=== PATIENT | female | born 1945 | race Caucasian/White ===

== ENCOUNTER 2019-11-25 06:00 | Outpatient (RCR) | payer MEDICARE, SELFPAY | END 2019-11-30 00:01 | LOC: ONCMED 06:00 | PROVIDERS: Family Provider Family Medicine; Visit Provider Internal Medicine Hematology & Oncology | DX: C50.211 Malignant neoplasm of upper-inner quadrant of right female breast (principal); C79.51 Secondary malignant neoplasm of bone; Z17.0 Estrogen receptor positive status [ER+]; Z79.811 Long term (current) use of aromatase inhibitors | CPT/HCPCS: 96372; 96402; 96523; J0897; J1642; J9395 ==

== ENCOUNTER → 2019-12-21 13:16 | Outpatient (BNVA) | payer MEDICARE, SELFPAY | PROVIDERS: Family Provider Family Medicine; PCP Family Medicine; Visit Provider Nurse Practitioner | DX: M47.816 Spondylosis without myelopathy or radiculopathy, lumbar region (principal); B02.29 Other postherpetic nervous system involvement; Z79.891 Long term (current) use of opiate analgesic | CPT/HCPCS: 99213 ==

== ENCOUNTER 2019-12-28 08:01 | Outpatient (CLI) | payer MEDICARE, SELFPAY ==
[2019-12-28] MEDS: denosumab 120 mg SDV SUBCUT (09:02)
[2019-12-28] MEDS: fulvestrant 250 mg/5 mL Syringe 500 MG IM (09:08)
--- NOTE | 2019-12-28 16:55 | ONC FU_ITS ---
Dr. Avitia follow up note Patient: Darcie Vaz Unit #: [id number]: 1945 Dicatated By: Jane Avitia M.D.Date of Visit:Dec 28, 2019 Onc Med Follow-up/Prog Note History of Present Illness: Mrs. Vaz is a 74-year-old female with a history of right breast cancer initially diagnosed in January 2017. She had mammography and ultrasound which showed a mass in the medial quadrant of right breast. A core biopsy was obtained which showed ER/CA positive HER-2/xavier negative. 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 Her postoperative period was complicated by left breast cellulitis which was treated with IV antibiotics . She underwent bilateral breast reconstruction and it was completed in January 2018. She did not receive adjuvant systemic therapy or radiation therapy at that time. She did not pursue hormonal treatment due to a history of osteoporosis. Mrs Vaz has history of osteoporosis/osteopenia for which she was treated with Fosamax for 12 years in . Then with Forteo for couple of years till 2009 as per patient. She did develop bilateral femur fracture due to osteoporosis and required internal fixation with titanium jenny in October 2008. She has history of back pain but recently got worse and she presented to her primary care physician for worsening back pain in the lower T and L-spine area. She underwent MRI imaging of the thoracic spine on 02/20/2018. It did show a nonacute appearing T7 and L1 burst fracture with associated mild central canal stenosis. The fracture did not appear to be pathologic. Additional T5, T6 and T11 mild compression fractures were noted. She was evaluated by Dr. Guillen and no surgical intervention was recommended. She did undergo PET/CT on 04/04/2018 which showed right axillary lymphadenopathy and bilateral supraclavicular lymphadenopathy with increased FDG uptake most likely recurrent malignancy. There was also a hypermetabolic malignant adenopathy in the anterior, mediastinal and widespread FDG activity throughout the marrow containing spaces of the axial and appendicular skeleton. These were strongly suspicious for widespread osseous metastatic disease. She had worsening of the low back pain which she described as persistent, stabbing, sharp pain that was worse especially when she walks, sits or stands. She had some radiation of the pain to the bilateral rib cage. She denied any focal weakness tingling or numbness. She's had no increments of the bowel or bladder at that time as well. She was referred to [facility] and Dr. Yap did recommend palliative radiation to the T and L-spine for pain relief. She received a total of 3000 cGy to the T and L-spine over 17 days. Her and of treatment date was 04/30/2018. She then received 2000 cGy to the sternum over 6 days with an end date of 05/06/2018. Mrs Vaz was offered her treatment with Ibrance and femara However she was unable to afford the co-pay on the Ibrance so her treatment plan has been changed to weekly paclitaxel . She received her first treatment on 06/16/2018. Till 11/11/2018, when her f/u CT PET scan done on 10/31/2018 showed excellent response to the treatment with resolution and near resolution of extensive osseous metastatic disease and she was switched to Arimidex 1 mg by mouth daily Along with monthly Xgeva and vitamin D and calcium supplement She did have kyphoplasty of L2 and L3 on 10/09/[address] Estrada-up CT PET scan done on 02/09/2019 showed excellent response to the treatment, now no evidence of metabolic activity disease with resolution of previously findings seen on prior CT PET scan. B12 deficiency, managed by primary care physicianMRI scan of lumbar spine was done on 03/16/2019 and when compared with one from 09/03/2018 showed diffuse osseous metastatic disease with complete replacement of normal fatty bone marrow signal, next Metastatic disease involving the S1 vertebral body is a new with progressed disease in the sacrum extending to the sacrococcygeal junction. Associated with edema and enhancement has progressed in this area. Enhancing metastatic disease involving S2 extending distally to the sacrococcygeal junction is progressed from previous consistent with metastatic disease. Associated enhancement, diffuse edema and enhancement in the sacrum is progressed since prior exam Stable multilevel compression fracture worse at L1 with mild retropulsion of L1 level MRI scan of thoracic spine done on 03/16/2019 showed diffuse osseous metastatic disease throughout the cervical thoracic and lumbar spine appears slightly progressed since 09/03/2018 with a more replacement of normal bone marrow signal Thoracic kyphoplasty at T5-T7. Vertebral plana at T7 is unchanged Numerous multilevel compression fractures throughout the thoracic spine appears stable since 09/03/2018 Cord signal is normal On 03/26/2019 patient underwent T8 and T10 kyphoplasty. Patient had CT PET scan done in January 2019, which showed excellent response, we will request radiologist to review and compared with that study. Her genetic profiling was done on 03/22/2019 showed positive results, pathogenic variant identified in BRCA2 CT PET scan done on 07/01/2019 showed hypermetabolic right supraclavicular lymph node with SUV of 2.86 and development of diffuse hypermetabolic metastatic disease throughout the axial and appendicular skeleton. Arimidex was discontinued and was switched to fulvestrant on 07/06/2019,but it was started on 07/27/2019 , while continue with Xgeva, Came for follow-up, denies any specific complaints, no fever or chills, no nausea or vomiting, no diarrhea constipation, no new bony pains. Tolerating fulvestrant/Xgeva well Medications: Aspir-81 1 Tablet (of 325 mg) Tablet, enteric coated Oral daily, Calcium + D3 1 Tablet (of 600-200 mg - Units) Oral daily, Chlorothiazide 1 Tablet (of 250 mg) Oral daily, Docusate Sodium 1 Tablet (of 100 mg) Oral at bedtime, Hydrocodone-Acetaminophen 1 Tablet (of 10-325 mg) Oral 6x/d PRN, Levothyroxine Sodium 1 (112 mcg) Tablet Oral daily, Lisinopril 1 Tablet (of 10 mg) Oral daily, LORazepam Tablet Oral PRN, Metoprolol Succinate ER 1 Tablet (of 25 mg) Tablet SR 24 HR Oral b.i.d. Allergies: penicillin and sulfonamides. Review of Systems: Constitutional - Appetite is fair and weight is stable. No fever, chills, hot flashes, or night sweats. Energy level is fair, ENMT - No sinus congestion/drainage. No mouth sores. No sore throat or difficulty swallowing, Hematologic/Lymphatic - No abnormal bruising or bleeding, Respiratory - Frequent shortness of breath with exertion. No cough. No pleuritic pain or hemoptysis, Cardiovascular - No angina pain. No palpitations, Gastrointestinal - No nausea or vomiting. No heartburn or acid reflux. No diarrhea or constipation. No blood in the stool or black stools, Genitourinary (F) - No dysuria or hematuria. No urinary frequency. No urgency or incontinence, Musculoskeletal - Pt reports that she continues to have issues with arthritis, Neurologic - No headache or dizziness. No numbness/paresthesias or other focal neurologic symptoms, Psychiatric - No anxiety or depression. No insomnia. Vital Signs: Performed on Dec 28, 2019 08:11 Height - 63.00 in Weight - 121.0 lbs (HIGH) BSA - 1.56 sq.m BMI - 21.43 Temperature - 98.0 F (LOW) Pulse - 72 /min Respiration - 18 /min BP - 122/75 mm(hg) O2 Sat - 99 % Pain - 2 Performance Status: 1 - No physically strenuous activity, but ambulatory and able to carry out light or sedentary work (e.g. office work, light house work). (ECOG) Physical Examination: Respiratory - Lungs are clear to auscultation without rhonchi or wheezing, Cardiovascular - Regular rate and rhythm of heart, Extremities - no edema. Lab/Imaging: Test performed on Oct 21, 2019 08:45 Sodium 137 mmol/L Potassium 4.3 mmol/L Chloride 101 mmol/L CO2 26 mmol/L Anion Gap 14.3 BUN 27 mg/dL Creatinine 1.1 mg/dL Cr Clearance (Est) 36.3300 mL/min Glucose 119 mg/dl Calcium 9.5 mg/dL Protein, Total 6.3 g/dL Albumin 4.7 g/dL Globulin 1.6 gm/dL Bilirubin, Total 0.3 mg/dL ALT (SGPT) 13 U/L AST (SGOT) 20 U/L Alkaline Phosphatase 68 U/L WBC 5.0 10 3/uL RBC 2.94 10 6/uL HGB 9.3 g/dL HCT 29.6 % MCV 100.7 fl MCH 31.6 pg MCHC 31.4 g/dl RDW 13.2 % Platelet Count 168 10 3/cmm MPV 11.1 fl Neutrophils 3.8 10 3/uL Lymphocytes 0.7 10 3/uL Monocytes 0.4 10 3/uL Eosinophils 0.2 10 3/uL Basophils 0.0 10 3/uL Neutrophil % 74.5 % Lymphocyte % 13.9 % Monocyte % 7.6 % Eosinophil % 3.4 % Basophils % 0.4 % Test performed on Jul 27, 2019 08:50 Vitamin B12 501 pg/mL Test performed on Jul 06, 2019 11:20 CA 27.29 6.48 U/mL Test performed on Jul 06, 2019 08:45 CA 15-3 12.0 U/mL CEA 2.3 ng/mL Impression: 1. Right breast carcinoma status post bilateral mastectomy with sentinel lymph node dissection in January 2017 Status post bilateral mastectomy January 2017 followed by bilateral breast reconstruction ER/CA positive HER-2/xavier negative ,Genetic testing done on 03/22/2019 showed results positive, pathogenic variant identified in BRCA2 She was offered tamoxifen but patient did not take any form of systemic/hormonal therapy because of fear of worsening of osteoporosis. Chronic back pain with questionable etiology MRI scan of thoracic spine done on February 20 2 x 18 showed T7, and L1 severe compression fracture do not appear to be pathological T4-L2 abnormal dural uniform thickening and enhancement CT PET scan done on 04/04/2018 showed a dominant 1.5 cm left supraclavicular lymph node has SUV of 12.5, suspicious activity is noted in subcentimeter right and left supraclavicular lymph nodes. Multiple hypermetabolic the right axillary lymph nodes are evident in the 1-3 levels with a solitary subcentimeter left exited lymph node an SUV of 3.1 there is abnormal activity in soft tissue anterior to right breast implant measuring 4.4 cm with SUV of 9.1. Malignant mediastinal lymphadenopathy is present in the right anterior mediastinal territory. Mild bilateral hilar activity may be reactive and there is a diffuse activity throughout the marrow containing spaces of the axial and appendicular skeleton widespread metastatic disease versus reactive marrow. Status post radiation therapy to sternum and and back, finished 05/06/2018. was On Femara since March 2018. She was offered a modified dose Ibrance 75 mg by mouth daily day 1-21 days every 28 days, but was declined as she could not afford the high copayments . starting 06/16/18 femara was d/jordy and started on weekly Taxol 80 mg/m??? on day 1, 8 and 15 every 28 days along with monthly Zometa 3 mg intravenously. lter on switched to xgeva , Follow-up CT PET scan done on 10/31/2018 showed excellent response so chemotherapy with weekly Taxol were discontinued on 11/11/2018 and she was switched to Arimidex 1 mg by mouth daily along with monthly Xgeva 2. Hypothyroidism on thyroid supplement 3. History of osteoporosis/osteopenia in the past treated with Fosamax for about 12 years in 1980s and then with Forteo for 2 years till 2009. 4. Hyperlipidemia Mrs Татьяна began chemotherapy with paclitaxel 2 out of 3 weeks on 06/16/2018. She is not on Femara at this time.And Zometa was discontinued on 09/09/2018 she will start on Xgeva 120 mg every month MRI scan of spine done on 09/03/2018 showed numerous osteoporotic and pathological compression and burst compression fracture identified, burst fracture at L1 with a 6.7 mm retropulsion with a mild compression upon thecal sac and narrowing of left foramen. Similar to the prior study with no progression Severe compression fractures at T5 and T7 with a more moderate compression deformities at T6, T9, T10, T11 and T12. Compression fracture also at L2, L3 and L4. Mild progression of compression fracture of L4 of approximately 20% Extent of enhancement has improved in the right ilium and right sacrum since MRI scan done in May 2018 CT PET scan done on 10/31/2018 showed right periimplant activity seen on previous CT PET scan done on 04/04/2018 is resolved, no suspicious bilateral axillary or supraclavicular lymphadenopathy present. Mediastinal adenopathy is resolved. Extensive sclerotic changes throughout the axial and appendicular skeleton are consistent with resolution and near resolution of osseous metastatic disease. Mild FDG activity in multiple thoracic vertebrae, bilateral scapula and iliac suggest ongoing resolution metastasis. Now on daily Arimidex, and monthly Xgeva, tolerating well and on 02/17/2019 Xgeva changed to every 3 months as her follow-up PET scan done on 02/09/2019 showed excellent response to the treatment now with no evidence of metabolically active disease with resolution of previously findings seen on a prior CT PET scan.MRI scan of thoracic/lumbar/sacral done on 03/16/2019, when compared with one from 09/03/2018 showed diffuse osseous metastatic disease throughout the cervical thorax and lumbar spine appears slightly progressed since 09/03/2018 with more replacement of normal marrow signal Thoracic kyphosis at T5-T7. Vertebra plana at T7 is unchanged Numerous multilevel compression fractures throughout the thoracic spine appears stable since 09/03/2018. No acute compression fracture Cord signal is normal Metastatic disease involving S1 vertebral body is new with progressed disease in the sacrum extending to sacrococcygeal junction. Associated edema and enhancement has progressed in this area. Stable multilevel compression fractures worse at L1 This MRI scan was compared with one from 09/03/[address] PET scan done on 02/09/2019 which showed excellent response so we will request radiologist to compare with recent CT PET scan. B12 deficiency, being managed by PMD CT PET scan done on 07/01/2019 showed hypermetabolic right supraclavicular lymph node with SUV of 2.86 Extensive bone metastases including right humeral head metastatic lesion shows SUV of 5.89. Hypermetabolic metastasis within the presumed T6 vertebral body showed SUV of 4.7 Right posterior sectoral metastasis shows make sure SUV of 5.09 next right femoral metastases shows SUV of 12.3 and there are other hypermetabolic metastasis seen in the left femur, bony pelvis, multiple bilateral ribs and spine Plan: Discussed with patient regarding her disease status and concern, clinically patient is doing well no new signs symptom suggestive of disease progression. We'll proceed with her monthly dose of Xgeva and fulvestrant today and then return to clinic in one month with CBC CMP and for dose of Xgeva/fulvestrant Signed By: Jane Avitia M.D. <<Signature on File>>
== END 2019-12-28 08:02 | disposition home or self-care (01) ==
LOC: ONCMED 08:03
PROVIDERS: Family Provider Family Medicine; PCP Family Medicine; Visit Provider Internal Medicine Hematology & Oncology
DX: C79.51 Secondary malignant neoplasm of bone (principal); C50.211 Malignant neoplasm of upper-inner quadrant of right female breast; C79.52 Secondary malignant neoplasm of bone marrow; C77.8 Secondary and unspecified malignant neoplasm of lymph nodes of multiple regions; M81.0 Age-related osteoporosis without current pathological fracture; E53.8 Deficiency of other specified B group vitamins; Z45.2 Encounter for adjustment and management of vascular access device; G89.29 Other chronic pain; M54.9 Dorsalgia, unspecified; E03.9 Hypothyroidism, unspecified; E78.5 Hyperlipidemia, unspecified; Z17.0 Estrogen receptor positive status [ER+]; Z79.818 Long term (current) use of other agents affecting estrogen receptors and estrogen levels; Z79.82 Long term (current) use of aspirin; Z79.891 Long term (current) use of opiate analgesic; Z90.13 Acquired absence of bilateral breasts and nipples; Z98.1 Arthrodesis status; Z92.3 Personal history of irradiation; Z92.21 Personal history of antineoplastic chemotherapy
CPT/HCPCS: 96372; 96402; 96523; 99214; J0897; J9395

== ENCOUNTER 2020-01-28 05:39 | Outpatient (RCR) | payer MEDICARE, SELFPAY ==
[2020-01-26 09:16] LABS: Basophils % 0.9 %; Eosinophils # 0.2 10^3/uL (0.0-0.8); Eosinophils % 4.4 %; Hematocrit 29.8 % (37.0-47.0); Hemoglobin 9.4 g/dL (11.5-15.3); Lymphocytes # 0.9 10^3/uL (0.8-4.8); Lymphocytes % 19.8 %; Mean Corpuscular HGB Conc 31.5 g/dL (30.0-36.0); Mean Corpuscular Hemoglobin 31.4 pg (28.0-34.0); Mean Corpuscular Volume 99.7 fL (81-99); Mean Platelet Volume 11.6 fL (7.4-10.4); Monocytes # 0.4 10^3/uL (0.2-0.9); Monocytes % 9.3 %; Neutrophils # 2.9 10^3/uL (1.8-7.7); Neutrophils % 64.9 %; Nucleated Red Blood Cells % 0 %; Platelet Count 203 10^3/cmm (130-400); Red Blood Count 2.99 10^6/uL (4.1-5.3); White Blood Count 4.5 10^3/uL (4.0-10.0)
[2020-01-26 09:33] LABS: Alanine Aminotransferase 13 U/L (0-33); Albumin Level 3.7 g/dL (3.5-5.2); Alkaline Phosphatase 72 IU/L (35-105); Anion Gap 13.5 (5-19); Aspartate Amino Transferase 26 U/L (0-32); Blood Urea Nitrogen 25 mg/dL (8-23); Calcium 9.3 mg/dL (8.5-10.5); Carbon Dioxide 25 mmol/L (22-29); Chloride 101 mmol/L (98-107); Globulin 3.6 g/dL (1.3-4.6); Glucose 110 mg/dL (65-115); Potassium 4.5 mmol/L (3.5-5.1); Sodium 135 mmol/L (136-145); Total Bilirubin 0.3 mg/dL (0.15-1.2); Total Protein 7.3 g/dL (6.6-8.7)
--- NOTE | 2020-01-28 09:01 | ONC FU_ITS ---
Dr. Avitia follow up note Patient: Darcie Vaz Unit #: [id number]: 1945 Dicatated By: Jane Avitia M.D.Date of Visit:Jan 28, 2020 Onc Med Follow-up/Prog Note History of Present Illness: Mrs. Vaz is a 74-year-old female with a history of right breast cancer initially diagnosed in January 2017. She had mammography and ultrasound which showed a mass in the medial quadrant of right breast. A core biopsy was obtained which showed ER/WY positive HER-2/xavier negative. 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 Her postoperative period was complicated by left breast cellulitis which was treated with IV antibiotics . She underwent bilateral breast reconstruction and it was completed in January 2018. She did not receive adjuvant systemic therapy or radiation therapy at that time. She did not pursue hormonal treatment due to a history of osteoporosis. Mrs Vaz has history of osteoporosis/osteopenia for which she was treated with Fosamax for 12 years in . Then with Forteo for couple of years till 2009 as per patient. She did develop bilateral femur fracture due to osteoporosis and required internal fixation with titanium jenny in October 2008. She has history of back pain but recently got worse and she presented to her primary care physician for worsening back pain in the lower T and L-spine area. She underwent MRI imaging of the thoracic spine on 02/20/2018. It did show a nonacute appearing T7 and L1 burst fracture with associated mild central canal stenosis. The fracture did not appear to be pathologic. Additional T5, T6 and T11 mild compression fractures were noted. She was evaluated by Dr. Guillen and no surgical intervention was recommended. She did undergo PET/CT on 04/04/2018 which showed right axillary lymphadenopathy and bilateral supraclavicular lymphadenopathy with increased FDG uptake most likely recurrent malignancy. There was also a hypermetabolic malignant adenopathy in the anterior, mediastinal and widespread FDG activity throughout the marrow containing spaces of the axial and appendicular skeleton. These were strongly suspicious for widespread osseous metastatic disease. She had worsening of the low back pain which she described as persistent, stabbing, sharp pain that was worse especially when she walks, sits or stands. She had some radiation of the pain to the bilateral rib cage. She denied any focal weakness tingling or numbness. She's had no increments of the bowel or bladder at that time as well. She was referred to [facility] and Dr. Yap did recommend palliative radiation to the T and L-spine for pain relief. She received a total of 3000 cGy to the T and L-spine over 17 days. Her and of treatment date was 04/30/2018. She then received 2000 cGy to the sternum over 6 days with an end date of 05/06/2018. Mrs Vaz was offered her treatment with Ibrance and femara However she was unable to afford the co-pay on the Ibrance so her treatment plan has been changed to weekly paclitaxel . She received her first treatment on 06/16/2018. Till 11/11/2018, when her f/u CT PET scan done on 10/31/2018 showed excellent response to the treatment with resolution and near resolution of extensive osseous metastatic disease and she was switched to Arimidex 1 mg by mouth daily Along with monthly Xgeva and vitamin D and calcium supplement She did have kyphoplasty of L2 and L3 on 10/09/[address] Estrada-up CT PET scan done on 02/09/2019 showed excellent response to the treatment, now no evidence of metabolic activity disease with resolution of previously findings seen on prior CT PET scan. B12 deficiency, managed by primary care physicianMRI scan of lumbar spine was done on 03/16/2019 and when compared with one from 09/03/2018 showed diffuse osseous metastatic disease with complete replacement of normal fatty bone marrow signal, next Metastatic disease involving the S1 vertebral body is a new with progressed disease in the sacrum extending to the sacrococcygeal junction. Associated with edema and enhancement has progressed in this area. Enhancing metastatic disease involving S2 extending distally to the sacrococcygeal junction is progressed from previous consistent with metastatic disease. Associated enhancement, diffuse edema and enhancement in the sacrum is progressed since prior exam Stable multilevel compression fracture worse at L1 with mild retropulsion of L1 level MRI scan of thoracic spine done on 03/16/2019 showed diffuse osseous metastatic disease throughout the cervical thoracic and lumbar spine appears slightly progressed since 09/03/2018 with a more replacement of normal bone marrow signal Thoracic kyphoplasty at T5-T7. Vertebral plana at T7 is unchanged Numerous multilevel compression fractures throughout the thoracic spine appears stable since 09/03/2018 Cord signal is normal On 03/26/2019 patient underwent T8 and T10 kyphoplasty. Patient had CT PET scan done in January 2019, which showed excellent response, we will request radiologist to review and compared with that study. Her genetic profiling was done on 03/22/2019 showed positive results, pathogenic variant identified in BRCA2 CT PET scan done on 07/01/2019 showed hypermetabolic right supraclavicular lymph node with SUV of 2.86 and development of diffuse hypermetabolic metastatic disease throughout the axial and appendicular skeleton. Arimidex was discontinued and was switched to fulvestrant on 07/06/2019,but it was started on 07/27/2019 , while continue with Xgeva, came for follow-up, denies any specific complaints, no nausea vomiting, no diarrhea or constipation, occasionally hot flashes otherwise tolerating Faslodex/Xgeva well, no shortness of breath, no palpitation, Medications: Aspir-81 1 Tablet (of 325 mg) Tablet, enteric coated Oral daily, Calcium + D3 1 Tablet (of 600-200 mg - Units) Oral daily, Chlorothiazide 1 Tablet (of 250 mg) Oral daily, Docusate Sodium 1 Tablet (of 100 mg) Oral at bedtime, Hydrocodone-Acetaminophen 1 Tablet (of 10-325 mg) Oral 6x/d PRN, Levothyroxine Sodium 1 (112 mcg) Tablet Oral daily, Lisinopril 1 Tablet (of 10 mg) Oral daily, LORazepam Tablet Oral PRN, Metoprolol Succinate ER 1 Tablet (of 25 mg) Tablet SR 24 HR Oral b.i.d. Allergies: penicillin and sulfonamides. Review of Systems: Constitutional - Appetite is fair and weight is stable. No fever, chills, hot flashes, or night sweats. Energy level is poor today, ENMT - No sinus congestion/drainage. No mouth sores. No sore throat or difficulty swallowing, Hematologic/Lymphatic - No abnormal bruising or bleeding, Respiratory - Frequent shortness of breath with exertion. No cough. No pleuritic pain or hemoptysis, Cardiovascular - No angina pain. No palpitations, Gastrointestinal - No nausea or vomiting. No heartburn or acid reflux. No diarrhea or constipation. No blood in the stool or black stools, Genitourinary (F) - No dysuria or hematuria. No urinary frequency. No urgency or incontinence, Musculoskeletal - Pt reports that she continues to have issues with arthritis, Neurologic - No headache or dizziness. No numbness/paresthesias or other focal neurologic symptoms, Psychiatric - No anxiety or depression. No insomnia. Vital Signs: Performed on Jan 28, 2020 08:15 Height - 63.00 in Weight - 122.0 lbs (HIGH) BSA - 1.57 sq.m BMI - 21.61 Temperature - 97.9 F (LOW) Pulse - 74 /min Respiration - 18 /min BP - 110/68 mm(hg) O2 Sat - 97 % Pain - 2 Performance Status: 1 - No physically strenuous activity, but ambulatory and able to carry out light or sedentary work (e.g. office work, light house work). (ECOG) Physical Examination: Respiratory - Lungs are clear to auscultation without rhonchi or wheezing, Cardiovascular - Regular rate and rhythm of heart, Extremities - no edema. Lab/Imaging: Test performed on Jan 26, 2020 08:40 Sodium 135 mmol/L Potassium 4.5 mmol/L Chloride 101 mmol/L CO2 25 mmol/L Anion Gap 13.5 BUN 25 mg/dL Creatinine 1.1 mg/dL Cr Clearance (Est) 38.2900 mL/min Glucose 110 mg/dL Calcium 9.3 mg/dL Protein, Total 7.3 g/dL Albumin 3.7 g/dL Globulin 3.6 g/dL Bilirubin, Total 0.3 mg/dL ALT (SGPT) 13 U/L AST (SGOT) 26 U/L Alkaline Phosphatase 72 IU/L WBC 4.5 10 3/uL RBC 2.99 10 6/uL HGB 9.4 g/dL HCT 29.8 % MCV 99.7 fL MCH 31.4 pg MCHC 31.5 g/dL RDW 14.0 % Platelet Count 203 10 3/cmm MPV 11.6 fL Neutrophils 2.9 10 3/uL Lymphocytes 0.9 10 3/uL Monocytes 0.4 10 3/uL Eosinophils 0.2 10 3/uL Basophils 0.0 10 3/uL Neutrophil % 64.9 % Lymphocyte % 19.8 % Monocyte % 9.3 % Eosinophil % 4.4 % Basophils % 0.9 % Impression: 1. Right breast carcinoma status post bilateral mastectomy with sentinel lymph node dissection in January 2017 Status post bilateral mastectomy January 2017 followed by bilateral breast reconstruction ER/WY positive HER-2/xavier negative ,Genetic testing done on 03/22/2019 showed results positive, pathogenic variant identified in BRCA2 She was offered tamoxifen but patient did not take any form of systemic/hormonal therapy because of fear of worsening of osteoporosis. Chronic back pain with questionable etiology MRI scan of thoracic spine done on February 20 x 18 showed T7, and L1 severe compression fracture do not appear to be pathological T4-L2 abnormal dural uniform thickening and enhancement CT PET scan done on 04/04/2018 showed a dominant 1.5 cm left supraclavicular lymph node has SUV of 12.5, suspicious activity is noted in subcentimeter right and left supraclavicular lymph nodes. Multiple hypermetabolic the right axillary lymph nodes are evident in the 1-3 levels with a solitary subcentimeter left exited lymph node an SUV of 3.1 there is abnormal activity in soft tissue anterior to right breast implant measuring 4.4 cm with SUV of 9.1. Malignant mediastinal lymphadenopathy is present in the right anterior mediastinal territory. Mild bilateral hilar activity may be reactive and there is a diffuse activity throughout the marrow containing spaces of the axial and appendicular skeleton widespread metastatic disease versus reactive marrow. Status post radiation therapy to sternum and and back, finished 05/06/2018. was On Femara since March 2018. She was offered a modified dose Ibrance 75 mg by mouth daily day 1-21 days every 28 days, but was declined as she could not afford the high copayments . starting 06/16/18 femara was d/jordy and started on weekly Taxol 80 mg/m??? on day 1, 8 and 15 every 28 days along with monthly Zometa 3 mg intravenously. lter on switched to xgeva , Follow-up CT PET scan done on 10/31/2018 showed excellent response so chemotherapy with weekly Taxol were discontinued on 11/11/2018 and she was switched to Arimidex 1 mg by mouth daily along with monthly Xgeva 2. Hypothyroidism on thyroid supplement 3. History of osteoporosis/osteopenia in the past treated with Fosamax for about 12 years in 1980s and then with Forteo for 2 years till 2009. 4. Hyperlipidemia Mrs Vaz began chemotherapy with paclitaxel 2 out of 3 weeks on 06/16/2018. She is not on Femara at this time.And Zometa was discontinued on 09/09/2018 she will start on Xgeva 120 mg every month MRI scan of spine done on 09/03/2018 showed numerous osteoporotic and pathological compression and burst compression fracture identified, burst fracture at L1 with a 6.7 mm retropulsion with a mild compression upon thecal sac and narrowing of left foramen. Similar to the prior study with no progression Severe compression fractures at T5 and T7 with a more moderate compression deformities at T6, T9, T10, T11 and T12. Compression fracture also at L2, L3 and L4. Mild progression of compression fracture of L4 of approximately 20% Extent of enhancement has improved in the right ilium and right sacrum since MRI scan done in May 2018 CT PET scan done on 10/31/2018 showed right periimplant activity seen on previous CT PET scan done on 04/04/2018 is resolved, no suspicious bilateral axillary or supraclavicular lymphadenopathy present. Mediastinal adenopathy is resolved. Extensive sclerotic changes throughout the axial and appendicular skeleton are consistent with resolution and near resolution of osseous metastatic disease. Mild FDG activity in multiple thoracic vertebrae, bilateral scapula and iliac suggest ongoing resolution metastasis. Now on daily Arimidex, and monthly Xgeva, tolerating well and on 02/17/2019 Xgeva changed to every 3 months as her follow-up PET scan done on 02/09/2019 showed excellent response to the treatment now with no evidence of metabolically active disease with resolution of previously findings seen on a prior CT PET scan.MRI scan of thoracic/lumbar/sacral done on 03/16/2019, when compared with one from 09/03/2018 showed diffuse osseous metastatic disease throughout the cervical thorax and lumbar spine appears slightly progressed since 09/03/2018 with more replacement of normal marrow signal Thoracic kyphosis at T5-T7. Vertebra plana at T7 is unchanged Numerous multilevel compression fractures throughout the thoracic spine appears stable since 09/03/2018. No acute compression fracture Cord signal is normal Metastatic disease involving S1 vertebral body is new with progressed disease in the sacrum extending to sacrococcygeal junction. Associated edema and enhancement has progressed in this area. Stable multilevel compression fractures worse at L1 This MRI scan was compared with one from 09/03/[address] PET scan done on 02/09/2019 which showed excellent response so we will request radiologist to compare with recent CT PET scan. B12 deficiency, being managed by PMD CT PET scan done on 07/01/2019 showed hypermetabolic right supraclavicular lymph node with SUV of 2.86 Extensive bone metastases including right humeral head metastatic lesion shows SUV of 5.89. Hypermetabolic metastasis within the presumed T6 vertebral body showed SUV of 4.7 Right posterior sectoral metastasis shows make sure SUV of 5.09 next right femoral metastases shows SUV of 12.3 and there are other hypermetabolic metastasis seen in the left femur, bony pelvis, multiple bilateral ribs and spine Plan: Discussed with patient regarding her labs white blood count 4.5 hemoglobin 9.4 crit 29.8 platelets 203,000 CMP within normal limits Clinically, patient is doing well, tolerating monthly Faslodex/Xgeva well but with expected side effects. We'll proceed with next dose Faslodex and Xgeva today and then will schedule her for follow-up CT PET scan to assess disease status and she will return to clinic in one month with CBC CMP [id number] but well compensated anemia, patient, said it is a lifelong problem e.g. anemia, required blood transfusion one time in her entire life. We'll continue to monitor and she will return to clinic in one month with CBC CMP and PET scan. Signed By: Jane Avitia M.D. <<Signature on File>>
== END 2020-01-29 23:59 | disposition home or self-care (01) ==
LOC: ONCMED 05:39
PROVIDERS: Family Provider Family Medicine; PCP Family Medicine; Visit Provider Internal Medicine Hematology & Oncology
DX: C50.211 Malignant neoplasm of upper-inner quadrant of right female breast (principal); C79.51 Secondary malignant neoplasm of bone; Z17.0 Estrogen receptor positive status [ER+]; C77.1 Secondary and unspecified malignant neoplasm of intrathoracic lymph nodes; M81.0 Age-related osteoporosis without current pathological fracture; E53.8 Deficiency of other specified B group vitamins; E03.9 Hypothyroidism, unspecified; E78.5 Hyperlipidemia, unspecified; D64.9 Anemia, unspecified; Z79.818 Long term (current) use of other agents affecting estrogen receptors and estrogen levels; Z79.811 Long term (current) use of aromatase inhibitors; Z79.82 Long term (current) use of aspirin; Z79.891 Long term (current) use of opiate analgesic; Z90.13 Acquired absence of bilateral breasts and nipples; Z98.1 Arthrodesis status; Z92.3 Personal history of irradiation; Z92.21 Personal history of antineoplastic chemotherapy
CPT/HCPCS: 36591; 80053; 85025; 96372; 96402; 99214

== ENCOUNTER → 2020-02-17 13:42 | Outpatient (BNVA) | payer MEDICARE, SELFPAY | PROVIDERS: Family Provider Family Medicine; PCP Family Medicine; Visit Provider Anesthesiology | DX: G89.29 Other chronic pain (principal); M47.816 Spondylosis without myelopathy or radiculopathy, lumbar region; Z79.891 Long term (current) use of opiate analgesic | CPT/HCPCS: 99213; 99214 ==

== ENCOUNTER 2020-02-28 06:28 | Outpatient (RCR) | payer MEDICARE, SELFPAY ==
[2020-02-25 09:09] LABS: Basophils % 0.5 %; Eosinophils # 0.2 10^3/uL (0.0-0.8); Eosinophils % 3.3 %; Hematocrit 28.5 % (37.0-47.0); Lymphocytes # 0.6 10^3/uL (0.8-4.8); Lymphocytes % 10.7 %; Mean Corpuscular HGB Conc 31.6 g/dL (30.0-36.0); Mean Corpuscular Volume 98.3 fL (81-99); Mean Platelet Volume 11.4 fL (7.4-10.4); Monocytes # 0.4 10^3/uL (0.2-0.9); Monocytes % 7.6 %; Neutrophils # 4.4 10^3/uL (1.8-7.7); Neutrophils % 77.5 %; Nucleated Red Blood Cells % 0 %; Platelet Count 200 10^3/cmm (130-400); Red Cell Distribution Width 14.4 % (12.1-15.1); White Blood Count 5.7 10^3/uL (4.0-10.0)
[2020-02-25 09:26] LABS: Alanine Aminotransferase 8 U/L (0-33); Albumin Level 3.9 g/dL (3.5-5.2); Alkaline Phosphatase 70 IU/L (35-105); Anion Gap 16.1 (5-19); Aspartate Amino Transferase 31 U/L (0-32); Blood Urea Nitrogen 25 mg/dL (8-23); Calcium 9.4 mg/dL (8.5-10.5); Carbon Dioxide 25 mmol/L (22-29); Chloride 101 mmol/L (98-107); Globulin 2.6 g/dL (1.3-4.6); Glucose 172 mg/dL (65-115); Osmolality Calculated 287 mOsm/kg (285-295); Potassium 4.1 mmol/L (3.5-5.1); Sodium 138 mmol/L (136-145); Total Bilirubin 0.3 mg/dL (0.15-1.2); Total Protein 6.5 g/dL (6.6-8.7)
[2020-02-25 09:46] LABS: Thyroid Stimulating Hormone 5.66 uIU/mL (0.27-4.20); Vitamin B12 562 pg/mL (232-1245)
[2020-02-28] MEDS: denosumab 120 mg SDV SUBCUT (09:44)
[2020-02-28] MEDS: fulvestrant 250 mg/5 mL Syringe 500 MG IM (09:47)
--- NOTE | 2020-03-01 15:40 | ONC FU_ITS ---
Dr. Avitia follow up note Patient: Darcie Vaz Unit #: [id number]: 1945 Dicatated By: Jane Avitia M.D.Date of Visit:Feb 28, 2020 Onc Med Follow-up/Prog Note History of Present Illness: Mrs. Vaz is a 74-year-old female with a history of right breast cancer initially diagnosed in January 2017. She had mammography and ultrasound which showed a mass in the medial quadrant of right breast. A core biopsy was obtained which showed ER/NC positive HER-2/xavier negative. She underwent bilateral mastectomy and right sentinel lymph node biopsy in January 2017 followed by bilateral tissue environmental associate placement. Her postoperative period was complicated by left breast cellulitis which was treated with IV antibiotics . She underwent bilateral breast reconstruction and it was completed in January 2018. She did not receive adjuvant systemic therapy or radiation therapy at that time. She did not pursue hormonal treatment due to a history of osteoporosis. Mrs Vaz has history of osteoporosis/osteopenia for which she was treated with Fosamax for 12 years in . Then with Forteo for couple of years till 2009 as per patient. She did develop bilateral femur fracture due to osteoporosis and required internal fixation with titanium jenny in October 2008. She has history of back pain but recently got worse and she presented to her primary care physician for worsening back pain in the lower T and L-spine area. She underwent MRI imaging of the thoracic spine on 02/20/2018. It did show a nonacute appearing T7 and L1 burst fracture with associated mild central canal stenosis. The fracture did not appear to be pathologic. Additional T5, T6 and T11 mild compression fractures were noted. She was evaluated by Dr. Guillen and no surgical intervention was recommended. She did undergo PET/CT on 04/04/2018 which showed right axillary lymphadenopathy and bilateral supraclavicular lymphadenopathy with increased FDG uptake most likely recurrent malignancy. There was also a hypermetabolic malignant adenopathy in the anterior, mediastinal and widespread FDG activity throughout the marrow containing spaces of the axial and appendicular skeleton. These were strongly suspicious for widespread osseous metastatic disease. She had worsening of the low back pain which she described as persistent, stabbing, sharp pain that was worse especially when she walks, sits or stands. She had some radiation of the pain to the bilateral rib cage. She denied any focal weakness tingling or numbness. She's had no increments of the bowel or bladder at that time as well. She was referred [facility] and Dr. Yap did recommend palliative radiation to the T and L-spine for pain relief. She received a total of 3000 cGy to the T and L-spine over 17 days. Her and of treatment date was 04/30/2018. She then received 2000 cGy to the sternum over 6 days with an end date of 05/06/2018. Mrs Vaz was offered her treatment with Ibrance and femara However she was unable to afford the co-pay on the Ibrance so her treatment plan has been changed to weekly paclitaxel . She received her first treatment on 06/16/2018. Till 11/11/2018, when her f/u CT PET scan done on 10/31/2018 showed excellent response to the treatment with resolution and near resolution of extensive osseous metastatic disease and she was switched to Arimidex 1 mg by mouth daily Along with monthly Xgeva and vitamin D and calcium supplement She did have kyphoplasty of L2 and L3 on 10/09/[address] Estrada-up CT PET scan done on 02/09/2019 showed excellent response to the treatment, now no evidence of metabolic activity disease with resolution of previously findings seen on prior CT PET scan. B12 deficiency, managed by primary care physicianMRI scan of lumbar spine was done on 03/16/2019 and when compared with one from 09/03/2018 showed diffuse osseous metastatic disease with complete replacement of normal fatty bone marrow signal, next Metastatic disease involving the S1 vertebral body is a new with progressed disease in the sacrum extending to the sacrococcygeal junction. Associated with edema and enhancement has progressed in this area. Enhancing metastatic disease involving S2 extending distally to the sacrococcygeal junction is progressed from previous consistent with metastatic disease. Associated enhancement, diffuse edema and enhancement in the sacrum is progressed since prior exam Stable multilevel compression fracture worse at L1 with mild retropulsion of L1 level MRI scan of thoracic spine done on 03/16/2019 showed diffuse osseous metastatic disease throughout the cervical thoracic and lumbar spine appears slightly progressed since 09/03/2018 with a more replacement of normal bone marrow signal Thoracic kyphoplasty at T5-T7. Vertebral plana at T7 is unchanged Numerous multilevel compression fractures throughout the thoracic spine appears stable since 09/03/2018 Cord signal is normal On 03/26/2019 patient underwent T8 and T10 kyphoplasty. Patient had CT PET scan done in January 2019, which showed excellent response, we will request radiologist to review and compared with that study. Her genetic profiling was done on 03/22/2019 showed positive results, pathogenic variant identified in BRCA2 CT PET scan done on 07/01/2019 showed hypermetabolic right supraclavicular lymph node with SUV of 2.86 and development of diffuse hypermetabolic metastatic disease throughout the axial and appendicular skeleton. Arimidex was discontinued and was switched to fulvestrant on 07/06/2019,but it was started on 07/27/2019 , while continue with Xgeva, Came for follow-up, denies any specific complaints, no fever or chills, no nausea or vomiting, no new bony pains, occasional hot flashes otherwise tolerating Faslodex/Xgeva well. Medications: Aspir-81 1 Tablet (of 325 mg) Tablet, enteric coated Oral daily, Calcium + D3 1 Tablet (of 600-200 mg - Units) Oral daily, Chlorothiazide 1 Tablet (of 250 mg) Oral daily, Docusate Sodium 1 Tablet (of 100 mg) Oral at bedtime, Hydrocodone-Acetaminophen 1 Tablet (of 10-325 mg) Oral 6x/d PRN, Levothyroxine Sodium 1 (112 mcg) Tablet Oral daily, Lisinopril 1 Tablet (of 10 mg) Oral daily, LORazepam Tablet Oral PRN, Metoprolol Succinate ER 1 Tablet (of 25 mg) Tablet SR 24 HR Oral b.i.d. Allergies: penicillin and sulfonamides. Review of Systems: Constitutional - Appetite is fair and weight is stable. No fever, chills, hot flashes, or night sweats. Energy level is poor today, ENMT - No sinus congestion/drainage. No mouth sores. No sore throat or difficulty swallowing, Hematologic/Lymphatic - No abnormal bruising or bleeding, Respiratory - Frequent shortness of breath with exertion. No cough. No pleuritic pain or hemoptysis, Cardiovascular - No angina pain. No palpitations, Gastrointestinal - No nausea or vomiting. No heartburn or acid reflux. No diarrhea or constipation. No blood in the stool or black stools, Genitourinary (F) - No dysuria or hematuria. No urinary frequency. No urgency or incontinence, Musculoskeletal - Pt reports that she continues to have issues with arthritis, Neurologic - No headache or dizziness. No numbness/paresthesias or other focal neurologic symptoms, Psychiatric - No anxiety or depression. No insomnia. Vital Signs: Performed on Feb 28, 2020 08:45 Height - 63.00 in Weight - 122.2 lbs (HIGH) BSA - 1.57 sq.m BMI - 21.65 Temperature - 98.7 F Pulse - 68 /min Respiration - 18 /min BP - 115/69 mm(hg) O2 Sat - 98 % Pain - 0 Performance Status: 1 - No physically strenuous activity, but ambulatory and able to carry out light or sedentary work (e.g. office work, light house work). (ECOG) Physical Examination: Respiratory - Lungs are clear to auscultation without rhonchi or wheezing, Cardiovascular - Regular rate and rhythm of heart , Extremities - No visible edema. Lab/Imaging: Test performed on Feb 25, 2020 08:44 Sodium 138 mmol/L Potassium 4.1 mmol/L Chloride 101 mmol/L CO2 25 mmol/L Anion Gap 16.1 BUN 25 mg/dL Creatinine 1.2 mg/dL Cr Clearance (Est) 35.3900 mL/min Glucose 172 mg/dL Calcium 9.4 mg/dL Protein, Total 6.5 g/dL Albumin 3.9 g/dL Globulin 2.6 g/dL Bilirubin, Total 0.3 mg/dL ALT (SGPT) 8 U/L AST (SGOT) 31 U/L Alkaline Phosphatase 70 IU/L WBC 5.7 10 3/uL RBC 2.90 10 6/uL HGB 9.0 g/dL HCT 28.5 % MCV 98.3 fL MCH 31.0 pg MCHC 31.6 g/dL RDW 14.4 % Platelet Count 200 10 3/cmm MPV 11.4 fL Neutrophils 4.4 10 3/uL Lymphocytes 0.6 10 3/uL Monocytes 0.4 10 3/uL Eosinophils 0.2 10 3/uL Basophils 0.0 10 3/uL Neutrophil % 77.5 % Lymphocyte % 10.7 % Monocyte % 7.6 % Eosinophil % 3.3 % Basophils % 0.5 % Impression: 1. Right breast carcinoma status post bilateral mastectomy with sentinel lymph node dissection in January 2017 Status post bilateral mastectomy January 2017 followed by bilateral breast reconstruction ER/NC positive HER-2/xavier negative ,Genetic testing done on 03/22/2019 showed results positive, pathogenic variant identified in BRCA2 She was offered tamoxifen but patient did not take any form of systemic/hormonal therapy because of fear of worsening of osteoporosis. Chronic back pain with questionable etiology MRI scan of thoracic spine done on February 20 x 18 showed T7, and L1 severe compression fracture do not appear to be pathological T4-L2 abnormal dural uniform thickening and enhancement CT PET scan done on 04/04/2018 showed a dominant 1.5 cm left supraclavicular lymph node has SUV of 12.5, suspicious activity is noted in subcentimeter right and left supraclavicular lymph nodes. Multiple hypermetabolic the right axillary lymph nodes are evident in the 1-3 levels with a solitary subcentimeter left exited lymph node an SUV of 3.1 there is abnormal activity in soft tissue anterior to right breast implant measuring 4.4 cm with SUV of 9.1. Malignant mediastinal lymphadenopathy is present in the right anterior mediastinal territory. Mild bilateral hilar activity may be reactive and there is a diffuse activity throughout the marrow containing spaces of the axial and appendicular skeleton widespread metastatic disease versus reactive marrow. Status post radiation therapy to sternum and and back, finished 05/06/2018. was On Femara since March 2018. She was offered a modified dose Ibrance 75 mg by mouth daily day 1-21 days every 28 days, but was declined as she could not afford the high copayments . starting 06/16/18 femara was d/jordy and started on weekly Taxol 80 mg/m??? on day 1, 8 and 15 every 28 days along with monthly Zometa 3 mg intravenously. lter on switched to xgeva , Follow-up CT PET scan done on 10/31/2018 showed excellent response so chemotherapy with weekly Taxol were discontinued on 11/11/2018 and she was switched to Arimidex 1 mg by mouth daily along with monthly Xgeva 2. Hypothyroidism on thyroid supplement 3. History of osteoporosis/osteopenia in the past treated with Fosamax for about 12 years in 1980s and then with Forteo for 2 years till 2009. 4. Hyperlipidemia Mrs Vaz began chemotherapy with paclitaxel 2 out of 3 weeks on 06/16/2018. She is not on Femara at this time.And Zometa was discontinued on 09/09/2018 she will start on Xgeva 120 mg every month MRI scan of spine done on 09/03/2018 showed numerous osteoporotic and pathological compression and burst compression fracture identified, burst fracture at L1 with a 6.7 mm retropulsion with a mild compression upon thecal sac and narrowing of left foramen. Similar to the prior study with no progression Severe compression fractures at T5 and T7 with a more moderate compression deformities at T6, T9, T10, T11 and T12. Compression fracture also at L2, L3 and L4. Mild progression of compression fracture of L4 of approximately 20% Extent of enhancement has improved in the right ilium and right sacrum since MRI scan done in May 2018 CT PET scan done on 10/31/2018 showed right periimplant activity seen on previous CT PET scan done on 04/04/2018 is resolved, no suspicious bilateral axillary or supraclavicular lymphadenopathy present. Mediastinal adenopathy is resolved. Extensive sclerotic changes throughout the axial and appendicular skeleton are consistent with resolution and near resolution of osseous metastatic disease. Mild FDG activity in multiple thoracic vertebrae, bilateral scapula and iliac suggest ongoing resolution metastasis. Now on daily Arimidex, and monthly Xgeva, tolerating well and on 02/17/2019 Xgeva changed to every 3 months as her follow-up PET scan done on 02/09/2019 showed excellent response to the treatment now with no evidence of metabolically active disease with resolution of previously findings seen on a prior CT PET scan.MRI scan of thoracic/lumbar/sacral done on 03/16/2019, when compared with one from 09/03/2018 showed diffuse osseous metastatic disease throughout the cervical thorax and lumbar spine appears slightly progressed since 09/03/2018 with more replacement of normal marrow signal Thoracic kyphosis at T5-T7. Vertebra plana at T7 is unchanged Numerous multilevel compression fractures throughout the thoracic spine appears stable since 09/03/2018. No acute compression fracture Cord signal is normal Metastatic disease involving S1 vertebral body is new with progressed disease in the sacrum extending to sacrococcygeal junction. Associated edema and enhancement has progressed in this area. Stable multilevel compression fractures worse at L1 This MRI scan was compared with one from 09/03/[address] PET scan done on 02/09/2019 which showed excellent response so we will request radiologist to compare with recent CT PET scan. B12 deficiency, being managed by PMD CT PET scan done on 07/01/2019 showed hypermetabolic right supraclavicular lymph node with SUV of 2.86 Extensive bone metastases including right humeral head metastatic lesion shows SUV of 5.89. Hypermetabolic metastasis within the presumed T6 vertebral body showed SUV of 4.7 Right posterior sectoral metastasis shows make sure SUV of 5.09 next right femoral metastases shows SUV of 12.3 and there are other hypermetabolic metastasis seen in the left femur, bony pelvis, multiple bilateral ribs and spine Plan: Discussed with patient regarding her labs white blood count 5.7 hemoglobin 9 hematocrit 28.5 platelets 200,000, and CMP within normal limit except glucose 172 creatinine 1.2 Clinically, patient is doing well, tolerating Faslodex/Xgeva well. We'll proceed with next monthly dose of Xgeva/Faslodex today and then she will return to clinic in one month with CBC CMP. Patient was scheduled for CT PET scan but because of [place] virus issue, she could not go to [place], now we will reorder CT PET scan here in [place] and as far as mild/moderate anemia is concerned, patient is not very symptomatic, will continue to monitor and consider blood transfusion if hemoglobin dropped to less than 8 g or patient becomes symptomatic. Return to clinic in one month with CBC CMP and CT PET scan and for Xgeva/Faslodex. Signed By: Jane Avitia M.D. <<Signature on File>>
== END 2020-02-29 23:59 | disposition home or self-care (01) ==
LOC: ONCMED 06:28
PROVIDERS: Family Provider Family Medicine; PCP Family Medicine; Visit Provider Internal Medicine Hematology & Oncology
DX: C50.811 Malignant neoplasm of overlapping sites of right female breast (principal); C79.51 Secondary malignant neoplasm of bone; Z17.0 Estrogen receptor positive status [ER+]; D64.9 Anemia, unspecified; E03.9 Hypothyroidism, unspecified; M81.0 Age-related osteoporosis without current pathological fracture; E78.5 Hyperlipidemia, unspecified; E53.8 Deficiency of other specified B group vitamins; Z79.818 Long term (current) use of other agents affecting estrogen receptors and estrogen levels; Z79.899 Other long term (current) drug therapy; Z90.13 Acquired absence of bilateral breasts and nipples
CPT/HCPCS: 36591; 80053; 82607; 84443; 85025; 96372; 96402; 99214; J0897; J9395

== ENCOUNTER 2020-03-30 06:45 | Outpatient (RCR) | payer MEDICARE, SELFPAY ==
[2020-03-29 08:41] LABS: Basophils % 0.8 %; Eosinophils # 0.2 10^3/uL (0.0-0.8); Eosinophils % 4.6 %; Lymphocytes # 0.8 10^3/uL (0.8-4.8); Lymphocytes % 15.8 %; Mean Corpuscular Volume 96.7 fL (81-99); Mean Platelet Volume 11.3 fL (7.4-10.4); Monocytes # 0.5 10^3/uL (0.2-0.9); Monocytes % 10.4 %; Neutrophils # 3.3 10^3/uL (1.8-7.7); Nucleated Red Blood Cells % 0 %; Platelet Count 211 10^3/cmm (130-400); Red Cell Distribution Width 14.6 % (12.1-15.1); White Blood Count 4.8 10^3/uL (4.0-10.0)
[2020-03-29 09:01] LABS: Blood Urea Nitrogen 28 mg/dL (8-23); Calcium 9.3 mg/dL (8.5-10.5); Carbon Dioxide 26 mmol/L (22-29); Chloride 100 mmol/L (98-107); Glucose 131 mg/dL (65-115); Osmolality Calculated 285 mOsm/kg (285-295); Sodium 138 mmol/L (136-145)
[2020-03-30] MEDS: denosumab 120 mg SDV SUBCUT (08:58)
[2020-03-30] MEDS: fulvestrant 250 mg/5 mL Syringe 500 MG IM (09:00)
--- NOTE | 2020-03-31 16:39 | ONC FU_ITS ---
Dr. Avitia follow up note Patient: Darcie Vaz Unit #: [id number]: 1945 Dicatated By: Jane Avitia M.D.Date of Visit:Mar 30, 2020 Onc Med Follow-up/Prog Note History of Present Illness: Mrs. Vaz is a 74-year-old female with a history of right breast cancer initially diagnosed in January 2017. She had mammography and ultrasound which showed a mass in the medial quadrant of right breast. A core biopsy was obtained which showed ER/OR positive HER-2/xavier negative. 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 Her postoperative period was complicated by left breast cellulitis which was treated with IV antibiotics . She underwent bilateral breast reconstruction and it was completed in January 2018. She did not receive adjuvant systemic therapy or radiation therapy at that time. She did not pursue hormonal treatment due to a history of osteoporosis. Mrs Vaz has history of osteoporosis/osteopenia for which she was treated with Fosamax for 12 years in . Then with Forteo for couple of years till 2009 as per patient. She did develop bilateral femur fracture due to osteoporosis and required internal fixation with titanium jenny in October 2008. She has history of back pain but recently got worse and she presented to her primary care physician for worsening back pain in the lower T and L-spine area. She underwent MRI imaging of the thoracic spine on 02/20/2018. It did show a nonacute appearing T7 and L1 burst fracture with associated mild central canal stenosis. The fracture did not appear to be pathologic. Additional T5, T6 and T11 mild compression fractures were noted. She was evaluated by Dr. Guillen and no surgical intervention was recommended. She did undergo PET/CT on 04/04/2018 which showed right axillary lymphadenopathy and bilateral supraclavicular lymphadenopathy with increased FDG uptake most likely recurrent malignancy. There was also a hypermetabolic malignant adenopathy in the anterior, mediastinal and widespread FDG activity throughout the marrow containing spaces of the axial and appendicular skeleton. These were strongly suspicious for widespread osseous metastatic disease. She had worsening of the low back pain which she described as persistent, stabbing, sharp pain that was worse especially when she walks, sits or stands. She had some radiation of the pain to the bilateral rib cage. She denied any focal weakness tingling or numbness. She's had no increments of the bowel or bladder at that time as well. She was referred to [facility] and Dr. Yap did recommend palliative radiation to the T and L-spine for pain relief. She received a total of 3000 cGy to the T and L-spine over 17 days. Her and of treatment date was 04/30/2018. She then received 2000 cGy to the sternum over 6 days with an end date of 05/06/2018. Mrs Vaz was offered her treatment with Ibrance and femara However she was unable to afford the co-pay on the Ibrance so her treatment plan has been changed to weekly paclitaxel . She received her first treatment on 06/16/2018. Till 11/11/2018, when her f/u CT PET scan done on 10/31/2018 showed excellent response to the treatment with resolution and near resolution of extensive osseous metastatic disease and she was switched to Arimidex 1 mg by mouth daily Along with monthly Xgeva and vitamin D and calcium supplement She did have kyphoplasty of L2 and L3 on 10/09/[address] Estrada-up CT PET scan done on 02/09/2019 showed excellent response to the treatment, now no evidence of metabolic activity disease with resolution of previously findings seen on prior CT PET scan. B12 deficiency, managed by primary care physicianMRI scan of lumbar spine was done on 03/16/2019 and when compared with one from 09/03/2018 showed diffuse osseous metastatic disease with complete replacement of normal fatty bone marrow signal, next Metastatic disease involving the S1 vertebral body is a new with progressed disease in the sacrum extending to the sacrococcygeal junction. Associated with edema and enhancement has progressed in this area. Enhancing metastatic disease involving S2 extending distally to the sacrococcygeal junction is progressed from previous consistent with metastatic disease. Associated enhancement, diffuse edema and enhancement in the sacrum is progressed since prior exam Stable multilevel compression fracture worse at L1 with mild retropulsion of L1 level MRI scan of thoracic spine done on 03/16/2019 showed diffuse osseous metastatic disease throughout the cervical thoracic and lumbar spine appears slightly progressed since 09/03/2018 with a more replacement of normal bone marrow signal Thoracic kyphoplasty at T5-T7. Vertebral plana at T7 is unchanged Numerous multilevel compression fractures throughout the thoracic spine appears stable since 09/03/2018 Cord signal is normal On 03/26/2019 patient underwent T8 and T10 kyphoplasty. Patient had CT PET scan done in January 2019, which showed excellent response, we will request radiologist to review and compared with that study. Her genetic profiling was done on 03/22/2019 showed positive results, pathogenic variant identified in BRCA2 CT PET scan done on 07/01/2019 showed hypermetabolic right supraclavicular lymph node with SUV of 2.86 and development of diffuse hypermetabolic metastatic disease throughout the axial and appendicular skeleton. Arimidex was discontinued and was switched to fulvestrant on 07/06/2019,but it was started on 07/27/2019 , while continue with Xgeva, Came for follow-up, complaining of left lower neck mass since last week, denies any sore throat, denies any trauma to her neck, denies any overlying skin changes. Denies any nausea vomiting of denies any fever chills, denies any headaches blurred vision double vision. Tolerating Faslodex/Xgeva well otherwise Medications: Aspir-81 1 Tablet (of 325 mg) Tablet, enteric coated Oral daily, Calcium + D3 1 Tablet (of 600-200 mg - Units) Oral daily, Chlorothiazide 1 Tablet (of 250 mg) Oral daily, Docusate Sodium 1 Tablet (of 100 mg) Oral at bedtime, Hydrocodone-Acetaminophen 1 Tablet (of 10-325 mg) Oral 6x/d PRN, Levothyroxine Sodium 1 (112 mcg) Tablet Oral daily, Lisinopril 1 Tablet (of 10 mg) Oral daily, LORazepam Tablet Oral PRN, Metoprolol Succinate ER 1 Tablet (of 25 mg) Tablet SR 24 HR Oral b.i.d. Allergies: penicillin and sulfonamides. Review of Systems: Constitutional - Appetite is fair and weight is stable. No fever, chills, hot flashes, or night sweats. Energy level is fair, ENMT - No sinus congestion/drainage. No mouth sores. No sore throat or difficulty swallowing, Hematologic/Lymphatic - No abnormal bruising or bleeding. Pt reports a lump near her left clavical, Respiratory - Frequent shortness of breath with exertion. No cough. No pleuritic pain or hemoptysis, Cardiovascular - No angina pain. No palpitations, Gastrointestinal - No nausea or vomiting. No heartburn or acid reflux. No diarrhea or constipation. No blood in the stool or black stools, Genitourinary (F) - No dysuria or hematuria. No urinary frequency. No urgency or incontinence, Musculoskeletal - Pt reports that she continues to have issues with arthritis, Neurologic - No headache or dizziness. No numbness/paresthesias or other focal neurologic symptoms, Psychiatric - No anxiety or depression. No insomnia. Vital Signs: Performed on Mar 30, 2020 08:12 Height - 63.00 in Weight - 121.6 lbs (LOW) BSA - 1.57 sq.m BMI - 21.54 Temperature - 97.3 F (LOW) Pulse - 87 /min Respiration - 17 /min BP - 123/75 mm(hg) O2 Sat - 97 % Pain - 1 Performance Status: 1 - No physically strenuous activity, but ambulatory and able to carry out light or sedentary work (e.g. office work, light house work). (ECOG) Physical Examination: Hematologic/Lymphatic - there is about 4 cm size mass in left supraclavicular area, masses nontender,hard in consistency, skin is free and showed no changes, Respiratory - Lungs are clear, Cardiovascular - Regular rate and rhythm of heart, Extremities - no visible edema. Lab/Imaging: Test performed on Feb 25, 2020 08:44 Sodium 138 mmol/L Potassium 4.1 mmol/L Chloride 101 mmol/L CO2 25 mmol/L Anion Gap 16.1 BUN 25 mg/dL Creatinine 1.2 mg/dL Cr Clearance (Est) 35.3900 mL/min Glucose 172 mg/dL Calcium 9.4 mg/dL Protein, Total 6.5 g/dL Albumin 3.9 g/dL Globulin 2.6 g/dL Bilirubin, Total 0.3 mg/dL ALT (SGPT) 8 U/L AST (SGOT) 31 U/L Alkaline Phosphatase 70 IU/L WBC 5.7 10 3/uL RBC 2.90 10 6/uL HGB 9.0 g/dL HCT 28.5 % MCV 98.3 fL MCH 31.0 pg MCHC 31.6 g/dL RDW 14.4 % Platelet Count 200 10 3/cmm MPV 11.4 fL Neutrophils 4.4 10 3/uL Lymphocytes 0.6 10 3/uL Monocytes 0.4 10 3/uL Eosinophils 0.2 10 3/uL Basophils 0.0 10 3/uL Neutrophil % 77.5 % Lymphocyte % 10.7 % Monocyte % 7.6 % Eosinophil % 3.3 % Basophils % 0.5 % Impression: 1. Right breast carcinoma status post bilateral mastectomy with sentinel lymph node dissection in January 2017 Status post bilateral mastectomy January 2017 followed by bilateral breast reconstruction ER/OR positive HER-2/xavier negative ,Genetic testing done on 03/22/2019 showed results positive, pathogenic variant identified in BRCA2 She was offered tamoxifen but patient did not take any form of systemic/hormonal therapy because of fear of worsening of osteoporosis. Chronic back pain with questionable etiology MRI scan of thoracic spine done on February 20 2 x 18 showed T7, and L1 severe compression fracture do not appear to be pathological T4-L2 abnormal dural uniform thickening and enhancement CT PET scan done on 04/04/2018 showed a dominant 1.5 cm left supraclavicular lymph node has SUV of 12.5, suspicious activity is noted in subcentimeter right and left supraclavicular lymph nodes. Multiple hypermetabolic the right axillary lymph nodes are evident in the 1-3 levels with a solitary subcentimeter left exited lymph node an SUV of 3.1 there is abnormal activity in soft tissue anterior to right breast implant measuring 4.4 cm with SUV of 9.1. Malignant mediastinal lymphadenopathy is present in the right anterior mediastinal territory. Mild bilateral hilar activity may be reactive and there is a diffuse activity throughout the marrow containing spaces of the axial and appendicular skeleton widespread metastatic disease versus reactive marrow. Status post radiation therapy to sternum and and back, finished 05/06/2018. was On Femara since March 2018. She was offered a modified dose Ibrance 75 mg by mouth daily day 1-21 days every 28 days, but was declined as she could not afford the high copayments . starting 06/16/18 femara was d/jordy and started on weekly Taxol 80 mg/m??? on day 1, 8 and 15 every 28 days along with monthly Zometa 3 mg intravenously. lter on switched to xgeva , Follow-up CT PET scan done on 10/31/2018 showed excellent response so chemotherapy with weekly Taxol were discontinued on 11/11/2018 and she was switched to Arimidex 1 mg by mouth daily along with monthly Xgeva 2. Hypothyroidism on thyroid supplement 3. History of osteoporosis/osteopenia in the past treated with Fosamax for about 12 years in 1980s and then with Forteo for 2 years till 2009. 4. Hyperlipidemia Mrs Татьяна began chemotherapy with paclitaxel 2 out of 3 weeks on 06/16/2018. She is not on Femara at this time.And Zometa was discontinued on 09/09/2018 she will start on Xgeva 120 mg every month MRI scan of spine done on 09/03/2018 showed numerous osteoporotic and pathological compression and burst compression fracture identified, burst fracture at L1 with a 6.7 mm retropulsion with a mild compression upon thecal sac and narrowing of left foramen. Similar to the prior study with no progression Severe compression fractures at T5 and T7 with a more moderate compression deformities at T6, T9, T10, T11 and T12. Compression fracture also at L2, L3 and L4. Mild progression of compression fracture of L4 of approximately 20% Extent of enhancement has improved in the right ilium and right sacrum since MRI scan done in May 2018 CT PET scan done on 10/31/2018 showed right periimplant activity seen on previous CT PET scan done on 04/04/2018 is resolved, no suspicious bilateral axillary or supraclavicular lymphadenopathy present. Mediastinal adenopathy is resolved. Extensive sclerotic changes throughout the axial and appendicular skeleton are consistent with resolution and near resolution of osseous metastatic disease. Mild FDG activity in multiple thoracic vertebrae, bilateral scapula and iliac suggest ongoing resolution metastasis. , and monthly Xgeva, tolerating well and on 02/17/2019 Xgeva changed to every 3 months as her follow-up PET scan done on 02/09/2019 showed excellent response to the treatment now with no evidence of metabolically active disease with resolution of previously findings seen on a prior CT PET scan.MRI scan of thoracic/lumbar/sacral done on 03/16/2019, when compared with one from 09/03/2018 showed diffuse osseous metastatic disease throughout the cervical thorax and lumbar spine appears slightly progressed since 09/03/2018 with more replacement of normal marrow signal Thoracic kyphosis at T5-T7. Vertebra plana at T7 is unchanged Numerous multilevel compression fractures throughout the thoracic spine appears stable since 09/03/2018. No acute compression fracture Cord signal is normal Metastatic disease involving S1 vertebral body is new with progressed disease in the sacrum extending to sacrococcygeal junction. Associated edema and enhancement has progressed in this area. Stable multilevel compression fractures worse at L1 This MRI scan was compared with one from 09/03/[address] PET scan done on 02/09/2019 which showed excellent response so we will request radiologist to compare with recent CT PET scan. B12 deficiency, being managed by PMD CT PET scan done on 07/01/2019 showed hypermetabolic right supraclavicular lymph node with SUV of 2.86 Extensive bone metastases including right humeral head metastatic lesion shows SUV of 5.89. Hypermetabolic metastasis within the presumed T6 vertebral body showed SUV of 4.7 Right posterior sectoral metastasis shows make sure SUV of 5.09 next right femoral metastases shows SUV of 12.3 and there are other hypermetabolic metastasis seen in the left femur, bony pelvis, multiple bilateral ribs and spine Plan: Discussed with patient regarding her labs white blood count 4.8 hemoglobin 9 hematocrit 29, platelets 211,000 CMP within normal limits Clinically, patient is doing well, with no new signs symptom suggestive of disease progression but concern is left supraclavicular mass, since last week. No overlying skin changes, masses nontender but hard in consistency, clinically it appears due to metastatic disease. CT PET scan was ordered earlier but insurance denied, we will request again , as PET scan is needed to assess disease status, visit disease progression we'll consider change in her therapy. In the meantime we'll proceed with Faslodex and Xgeva and then patient return to clinic [address] PET scan for further discussion. Signed By: Jane Avitia M.D. <<Signature on File>>
== END 2020-03-30 23:59 | disposition home or self-care (01) ==
LOC: ONCMED 06:45
PROVIDERS: Family Provider Family Medicine; PCP Family Medicine; Visit Provider Internal Medicine Hematology & Oncology
DX: C79.51 Secondary malignant neoplasm of bone (principal); C79.52 Secondary malignant neoplasm of bone marrow; M81.0 Age-related osteoporosis without current pathological fracture; C50.211 Malignant neoplasm of upper-inner quadrant of right female breast; Z17.0 Estrogen receptor positive status [ER+]; E03.9 Hypothyroidism, unspecified; E78.5 Hyperlipidemia, unspecified; Z92.21 Personal history of antineoplastic chemotherapy; Z79.899 Other long term (current) drug therapy; Z79.811 Long term (current) use of aromatase inhibitors; Z92.3 Personal history of irradiation; Z90.11 Acquired absence of right breast and nipple; Z90.12 Acquired absence of left breast and nipple
CPT/HCPCS: 36591; 80048; 85025; 96372; 96402; 99214; J0897; J9395

== ENCOUNTER 2020-04-04 11:55 | Outpatient (CLI) | payer MEDICARE, SELFPAY ==
--- NOTE | 2020-04-04 12:08 | CT_ITS ---
WS: [id number] CT CHEST AND ABDOMEN WITH CONTRAST HISTORY: BREAST CANCER, BONE CANCER TECHNIQUE: Axial imaging is performed through the chest and abdomen with IV and oral contrast.. Sagit donn and coronal reformats. All CT scans at [facility] use at least one of these dose opti mization techniques: automated exposure control; mA and/or kV adjustment per patient size (includes t argeted exams where dose is matched to clinical indication); or iterative reconstruction. CONTRAST: Visipaque 320; 55 mL IV. DLP: 1348.36 mGycm COMPARISON: Head CT 02/09/[address]: Decreased lung volumes. There are scattered areas of ill-defined groundglass and developing consolida tions in the RIGHT upper lobe and at the lung bases and lingula. Bronchiectasis at the lingula. No pleural effusion. Small pericardial effusion is evident. Again identified is the posterior LEFT supraclavicular mass measuring 2.4 x 1.5 cm. 2 lymph nodes in the inferior LEFT neck are new since the prior PET/CT with the largest measuring 1.2 cm. Indeterminat e mediastinal and hilar lymph nodes. Largest lymph node is 1.3 cm at the RIGHT hilum. Soft tissue pao rounding the proximal LEFT lower lobe pulmonary artery measuring up to 1.0 cm in diameter. Mild enlargement the heart. Mild atherosclerosis aorta. Bilateral breast implants. Severe deformity of the sternum. RIGHT ankle of the xiphoid distal sternal extending anterior. Extensive metastatic disease with numerous compression fractures in the thoracic spine. Prior vertebroplasties have also been performed at T8, T10 and L2. Severe compression fractur e T7, T9 and L1. There are additional fractures and evidence for diffuse metastatic disease which has been previously described. Abdomen CT: Several decreased attenuation lesions scattered throughout the liver. Consistent with metastatic dise ase. The largest metastatic lesions measure 1.5 cm. No bile duct dilatation. Gallbladder is negative. Normal spleen. Marked atrophy of the pancreas. No adrenal mass. Kidneys are mildly atrophied with no obstructionn. No adenopathy or ascites within the abdomen. Small retroperitoneal lymph nodes which are not enlarged. Burst compression fracture of L1. Prior vertebroplasties at L2, L3 and L4. CT/CT chest abdomen w con* IMPRESSION: 1. Inferior LEFT cervical chain and posterior LEFT clavicle lymphadenopathy. S uspicious for recurrent disease. 2. Additional indeterminate but suspicious hilar and mediastinal lymph nodes. 3. Bilateral breast implants. 4. Numerous hepatic metastases. 5. No ascites. 6. Diffuse osseous metastatic disease. Numerous vertebral compression fracture s and numerous prior vertebroplasties. 7. No definite metastatic lesions in the lungs. There are scattered areas of a irspace disease which may be pneumonitis. Cannot completely exclude metastatic disease but thought less likely. 8. New small pericardial effusion.
--- NOTE | 2020-04-04 12:08 | CT_ITS ---
WS: [id number] CT NECK WITH CONTRAST HISTORY: BREAST CANCER, BONE CANCER TECHNIQUE: Contiguous 5 mm axial images are performed through the neck with intravenous contrast. Sag ittal and coronal reformats are also submitted. All CT scans at [facility] use at least o ne of these dose optimization techniques: automated exposure control; mA and/or kV adjustment per pat ient size (includes targeted exams where dose is matched to clinical indication); or iterative recons truction. CONTRAST: CONTRAST: Visipaque 320; 50 mL IV. DLP: 1751.48 mGycm COMPARISON: None available. Markers are placed in the supraclavicular locations in the palpable regions. The RIGHT palpable regio n corresponds to a very superficial artery. The LEFT palpable marker corresponds to fat. There are no underlying lymph nodes. There is an irregular soft tissue nodule which is posterior to the mid to distal LEFT clavicle. This nodule measures 17 x 19 mm with irregular margins. Additional soft tissue nodule at level IV on the LEFT with a maximum diameter of 13 mm. There is an additional smaller nodule just lateral to the inte rnal jugular vein in the supraclavicular space. Neither of these masses is present on the prior PET/C T of 02/09/2019. Nasopharynx, oropharynx, hypopharynx and larynx are unremarkable. No soft tissue masses or abnormal e nhancement. Torus tubarius and fossa of Rosenmuller and parapharyngeal fat are normal. Thyroid may have been surgically removed. Patient did provide a history of prior thyroid surgery. No normal-appearing thyroid tissue. Bones are markedly osteopenic. Mixed sclerotic lytic changes within the bones probably from diffuse m etastatic disease which has been previous the described. Vertebral planar compression fractures at T5 and T6. RIGHT subclavian Port-A-Cath. Mild haziness in the RIGHT upper lobe in the periphery may be an area o f pneumonitis. CT/CT neck w con* [id number] IMPRESSION: 1. Soft tissue nodules suspicious for lymphadenopathy LEFT cervical chain at l evel IV and supraclavicular. 2. Palpable abnormality in the RIGHT lower neck corresponds to a prominent ves indira.
[2020-04-04] MEDS: iohexol 300 mg/mL 50 mL Btl IV (12:39)
[2020-04-04] MEDS: iodixanol 320 mg/mL 100mL Btl IV ×2 (12:40)
== END 2020-04-04 11:56 | disposition home or self-care (01) ==
LOC: RAD 12:00 → RADWPI 12:07
PROVIDERS: Family Provider Family Medicine; PCP Family Medicine; Visit Provider Internal Medicine Hematology & Oncology
DX: C50.919 Malignant neoplasm of unspecified site of unspecified female breast (principal); C79.51 Secondary malignant neoplasm of bone; R59.0 Localized enlarged lymph nodes; I31.3 Pericardial effusion (noninflammatory)
CPT/HCPCS: 70491; 71260; 74160; Q9967

== ENCOUNTER 2020-04-06 13:29 | Outpatient (CLI) | payer MEDICARE, SELFPAY ==
--- NOTE | 2020-04-06 | NM_ITS ---
WS: [id number] NM bone scan whole body* [id number] REASON FOR EXAM: HISTORY OF CANCER TECHNICAL: 25.5 mCi technetium labeled 90 9:00 AM HDP FINDINGS: Irregular activity is seen in both necks and heads and intertrochanteric areas of both hips . These appear to match the areas seen on the bone scan. The thoracic spine lumbar spine shows slight ill-defined densities consistent with a previous liseth opal fractures. In both proximal one third of the femurs there is areas of increased activity which matched the areas of callus formation in the femurs. The brain shows no activity. Cervical spine shows degenerated changes. NM/NM bone scan whole body* [id number] IMPRESSION: Suspect abnormal activity in the right and left proximal femurs suggesting but not conclusive of metastatic disease. The remaining thoracic lumbar spine shows ill-defined densities suggesting maximino te fractures. There is abnormal activity and both proximal one thirds of the femurs in the ar ea of callus formation from previous fractures.
--- NOTE | 2020-04-06 | XR_ITS ---
WS: [id number] XR pelvis 1-2V* [id number] REASON FOR EXAM: BONE SCAN COMPARISON FINDINGS: There is evidence of previous fracture with healing and franks pins in the mid shafts of the femur. The ilium, ischium, and pubis are normal. Mild osteoblastic changes in the right neck and head and intertrochanteric area of the femur as well as the ischium on the right and left side and pubis the right left side. XR/XR pelvis 1-2V* [id number] IMPRESSION: Questionable early metastatic changes in the hip joints and pubis ischium the julissa augustin.
== END 2020-04-06 13:30 | disposition home or self-care (01) ==
PROVIDERS: Family Provider Family Medicine; PCP Family Medicine; Visit Provider Internal Medicine Hematology & Oncology
DX: Z85.9 Personal history of malignant neoplasm, unspecified (principal)
CPT/HCPCS: 72170; 78306; A9561

== ENCOUNTER 2020-04-28 08:22 | Outpatient (CLI) | payer MEDICARE, SELFPAY ==
[2020-04-28 09:11] LABS: Basophils % 0.4 %; Eosinophils # 0.1 10^3/uL (0.0-0.8); Eosinophils % 2.6 %; Hematocrit 28.8 % (37.0-47.0); Lymphocytes # 0.6 10^3/uL (0.8-4.8); Lymphocytes % 10.8 %; Mean Corpuscular HGB Conc 31.3 g/dL (30.0-36.0); Mean Corpuscular Hemoglobin 29.8 pg (28.0-34.0); Mean Corpuscular Volume 95.4 fL (81-99); Mean Platelet Volume 11.5 fL (7.4-10.4); Monocytes # 0.6 10^3/uL (0.2-0.9); Monocytes % 11.2 %; Neutrophils % 74.6 %; Nucleated Red Blood Cells % 0 %; Platelet Count 203 10^3/cmm (130-400); Red Blood Count 3.02 10^6/uL (4.1-5.3); Red Cell Distribution Width 14.6 % (12.1-15.1); White Blood Count 5.3 10^3/uL (4.0-10.0)
[2020-04-28 09:19] LABS: Alanine Aminotransferase 26 U/L (0-33); Albumin Level 3.9 g/dL (3.5-5.2); Alkaline Phosphatase 91 IU/L (35-105); Anion Gap 16.1 (5-19); Aspartate Amino Transferase 51 U/L (0-32); Blood Urea Nitrogen 27 mg/dL (8-23); Calcium 9.3 mg/dL (8.5-10.5); Carbon Dioxide 25 mmol/L (22-29); Chloride 98 mmol/L (98-107); Globulin 2.8 g/dL (1.3-4.6); Glucose 141 mg/dL (65-115); Osmolality Calculated 279 mOsm/kg (285-295); Potassium 4.1 mmol/L (3.5-5.1); Sodium 135 mmol/L (136-145); Total Bilirubin 0.3 mg/dL (0.15-1.2); Total Protein 6.7 g/dL (6.6-8.7)
== END 2020-04-28 08:23 | disposition home or self-care (01) ==
LOC: ONCMED 08:22
PROVIDERS: PCP Family Medicine; Visit Provider Internal Medicine Hematology & Oncology
DX: C50.211 Malignant neoplasm of upper-inner quadrant of right female breast (principal); C79.51 Secondary malignant neoplasm of bone; C79.52 Secondary malignant neoplasm of bone marrow; Z92.3 Personal history of irradiation; Z79.811 Long term (current) use of aromatase inhibitors
CPT/HCPCS: 36591; 80053; 85025

== ENCOUNTER 2020-05-05 08:05 | Outpatient (CLI) | payer MEDICARE, SELFPAY ==
[2020-05-05] MEDS: fulvestrant 250 mg/5 mL Syringe 500 MG IM (09:29)
[2020-05-05] MEDS: denosumab 120 mg SDV SUBCUT (10:32)
--- NOTE | 2020-05-05 11:42 | ONC FU_ITS ---
Dr. Avitia follow up note Patient: Darcie Vaz Unit #: [id number]: [id number] Dicatated By: Jane Avitia M.D.Date of Visit:May 05, 2020 Onc Med Follow-up/Prog Note History of Present Illness: Mrs. Vaz is a 74-year-old female with a history of right breast cancer initially diagnosed in January 2017. She had mammography and ultrasound which showed a mass in the medial quadrant of right breast. A core biopsy was obtained which showed ER/HI positive HER-2/xavier negative. She underwent bilateral mastectomy and right sentinel lymph node biopsy in January 2017 followed by bilateral tissue subpoena server placement. Her postoperative period was complicated by left breast cellulitis which was treated with IV antibiotics . She underwent bilateral breast reconstruction and it was completed in January 2018. She did not receive adjuvant systemic therapy or radiation therapy at that time. She did not pursue hormonal treatment due to a history of osteoporosis. Mrs Vaz has history of osteoporosis/osteopenia for which she was treated with Fosamax for 12 years in . Then with Forteo for couple of years till 2009 as per patient. She did develop bilateral femur fracture due to osteoporosis and required internal fixation with titanium jenny in October 2008. She has history of back pain but recently got worse and she presented to her primary care physician for worsening back pain in the lower T and L-spine area. She underwent MRI imaging of the thoracic spine on 02/20/2018. It did show a nonacute appearing T7 and L1 burst fracture with associated mild central canal stenosis. The fracture did not appear to be pathologic. Additional T5, T6 and T11 mild compression fractures were noted. She was evaluated by Dr. Guillen and no surgical intervention was recommended. She did undergo PET/CT on 04/04/2018 which showed right axillary lymphadenopathy and bilateral supraclavicular lymphadenopathy with increased FDG uptake most likely recurrent malignancy. There was also a hypermetabolic malignant adenopathy in the anterior, mediastinal and widespread FDG activity throughout the marrow containing spaces of the axial and appendicular skeleton. These were strongly suspicious for widespread osseous metastatic disease. She had worsening of the low back pain which she described as persistent, stabbing, sharp pain that was worse especially when she walks, sits or stands. She had some radiation of the pain to the bilateral rib cage. She denied any focal weakness tingling or numbness. She's had no increments of the bowel or bladder at that time as well. She was referred to [facility] and Dr. Yap did recommend palliative radiation to the T and L-spine for pain relief. She received a total of 3000 cGy to the T and L-spine over 17 days. Her and of treatment date was 04/30/2018. She then received 2000 cGy to the sternum over 6 days with an end date of 05/06/2018. Mrs Vaz was offered her treatment with Ibrance and femara However she was unable to afford the co-pay on the Ibrance so her treatment plan has been changed to weekly paclitaxel . She received her first treatment on 06/16/2018. Till 11/11/2018, when her f/u CT PET scan done on 10/31/2018 showed excellent response to the treatment with resolution and near resolution of extensive osseous metastatic disease and she was switched to Arimidex 1 mg by mouth daily Along with monthly Xgeva and vitamin D and calcium supplement She did have kyphoplasty of L2 and L3 on 10/09/[address] Estrada-up CT PET scan done on 02/09/2019 showed excellent response to the treatment, now no evidence of metabolic activity disease with resolution of previously findings seen on prior CT PET scan. B12 deficiency, managed by primary care physicianMRI scan of lumbar spine was done on 03/16/2019 and when compared with one from 09/03/2018 showed diffuse osseous metastatic disease with complete replacement of normal fatty bone marrow signal, next Metastatic disease involving the S1 vertebral body is a new with progressed disease in the sacrum extending to the sacrococcygeal junction. Associated with edema and enhancement has progressed in this area. Enhancing metastatic disease involving S2 extending distally to the sacrococcygeal junction is progressed from previous consistent with metastatic disease. Associated enhancement, diffuse edema and enhancement in the sacrum is progressed since prior exam Stable multilevel compression fracture worse at L1 with mild retropulsion of L1 level MRI scan of thoracic spine done on 03/16/2019 showed diffuse osseous metastatic disease throughout the cervical thoracic and lumbar spine appears slightly progressed since 09/03/2018 with a more replacement of normal bone marrow signal Thoracic kyphoplasty at T5-T7. Vertebral plana at T7 is unchanged Numerous multilevel compression fractures throughout the thoracic spine appears stable since 09/03/2018 Cord signal is normal On 03/26/2019 patient underwent T8 and T10 kyphoplasty. Patient had CT PET scan done in January 2019, which showed excellent response, we will request radiologist to review and compared with that study. Her genetic profiling was done on 03/22/2019 showed positive results, pathogenic variant identified in BRCA2 CT PET scan done on 07/01/2019 showed hypermetabolic right supraclavicular lymph node with SUV of 2.86 and development of diffuse hypermetabolic metastatic disease throughout the axial and appendicular skeleton. Arimidex was discontinued and was switched to fulvestrant on 07/06/2019,but it was started on 07/27/2019 , while continue with xgeva Follow-up bone scan done on April 06, 2020 shows suspected abnormal activity in the right and left proximal femurs suggesting but not conclusive of metastatic disease. The remaining thoracic lumbar spine shows ill-defined densities suggestive of remote fractures. No new lesions seen x-ray pelvis shows there is evidence of previous fracture and healing and rash pains in the mid shafts of the femur. Questionable early metastatic disease in the hip joints and pubic ischium. CT scan of neck showed palpable abnormality in the right lower neck corresponds to prominent vessel and left palpable corresponds to fat. Where a CT scan of chest abdomen pelvis done on same day on April 04, 2020 showed left supraclavicular mass measuring 2.4 x 1.5 cm.. Additional indeterminate but suspicious hilar and mediastinal lymph nodes. Numerous hepatic metastatic lesion hemangioma versus metastatic disease as the CT scan was done with contrast whereas earlier CT scan were without contrast. Case was discussed with Dr. Porter radiologist and she suggested CT PET scan to confirm the findings. Diffuse osseous metastatic lesion numerous vertebral compression fracture and numerous prior vertebroplasty's. No definite metastatic lesion in the lungs. There are scattered areas of airspace disease which may be pneumonitis, cannot completely exclude metastatic disease but less likely. New small pericardial effusion. Came for follow-up, denies any specific complaints but episode of palpitation which lasted for 3 hours, patient said she did not have any shortness of breath still having chest pain no dizziness or lightheadedness. She had another episode which lasted for less than 1 hour again no symptoms. Patient has seen Dr. Sellers in the past but then lost follow-up. Denies any fever or chills, denies any nausea or vomiting, denies any melena hematochezia denies any jaundice, denies any new bony pains, appetite is reasonable tolerating Faslodex and Xgeva well otherwise. Medications: Aspir-81 1 Tablet (of 325 mg) Tablet, enteric coated Oral daily, Calcium + D3 1 Tablet (of 600-200 mg - Units) Oral daily, Chlorothiazide 1 Tablet (of 250 mg) Oral daily, Docusate Sodium 1 Tablet (of 100 mg) Oral at bedtime, Hydrocodone-Acetaminophen 1 Tablet (of 10-325 mg) Oral 6x/d PRN, Levothyroxine Sodium 1 (112 mcg) Tablet Oral daily, Lisinopril 1 Tablet (of 10 mg) Oral daily, LORazepam Tablet Oral PRN, Metoprolol Succinate ER 1 Tablet (of 25 mg) Tablet SR 24 HR Oral b.i.d. Allergies: penicillin and sulfonamides. Review of Systems: Constitutional - Appetite is fair and weight is stable. No fever, chills, hot flashes, or night sweats. Energy level is fair, ENMT - No sinus congestion/drainage. No mouth sores. No sore throat or difficulty swallowing, Hematologic/Lymphatic - No abnormal bruising or bleeding, Respiratory - Frequent shortness of breath with exertion. No cough. No pleuritic pain or hemoptysis, Cardiovascular - No angina pain. No palpitations, Gastrointestinal - No nausea or vomiting. No heartburn or acid reflux. No diarrhea or constipation. No blood in the stool or black stools, Genitourinary (F) - No dysuria or hematuria. No urinary frequency. No urgency or incontinence, Musculoskeletal - Pt reports that she continues to have issues with arthritis, Neurologic - No headache or dizziness. No numbness/paresthesias or other focal neurologic symptoms, Psychiatric - No anxiety or depression. No insomnia. Vital Signs: Performed on May 05, 2020 08:12 Height - 63.00 in Weight - 114.8 lbs (LOW) BSA - 1.53 sq.m BMI - 20.34 Temperature - 98.0 F (LOW) Pulse - 85 /min Respiration - 18 /min BP - 104/49 mm(hg) O2 Sat - 98 % Pain - 2 Performance Status: 1 - No physically strenuous activity, but ambulatory and able to carry out light or sedentary work (e.g. office work, light house work). (ECOG) Physical Examination: Respiratory - Lungs are clear, Cardiovascular - Regular rate and rhythm of heart, Gastrointestinal - Soft, bowel sounds present, Extremities - No visible edema or rash. Lab/Imaging: Test performed on April 28, 2020 08:42 Sodium 135 mmol/L Potassium 4.1 mmol/L Chloride 98 mmol/L CO2 25 mmol/L Anion Gap 16.1 BUN 27 mg/dL Creatinine 1.0 mg/dL Cr Clearance (Est) 42.3300 mL/min Glucose 141 mg/dL Calcium 9.3 mg/dL Protein, Total 6.7 g/dL Albumin 3.9 g/dL Globulin 2.8 g/dL Bilirubin, Total 0.3 mg/dL ALT (SGPT) 26 U/L AST (SGOT) 51 U/L Alkaline Phosphatase 91 IU/L WBC 5.3 10 3/uL RBC 3.02 10 6/uL HGB 9.0 g/dL HCT 28.8 % MCV 95.4 fL MCH 29.8 pg MCHC 31.3 g/dL RDW 14.6 % Platelet Count 203 10 3/cmm MPV 11.5 fL Neutrophils 4.0 10 3/uL Lymphocytes 0.6 10 3/uL Monocytes 0.6 10 3/uL Eosinophils 0.1 10 3/uL Basophils 0.0 10 3/uL Neutrophil % 74.6 % Lymphocyte % 10.8 % Monocyte % 11.2 % Eosinophil % 2.6 % Basophils % 0.4 % Impression: 1. Right breast carcinoma status post bilateral mastectomy with sentinel lymph node dissection in January 2017 Status post bilateral mastectomy January 2017 followed by bilateral breast reconstruction ER/HI positive HER-2/xavier negative ,Genetic testing done on 03/22/2019 showed results positive, pathogenic variant identified in BRCA2 She was offered tamoxifen but patient did not take any form of systemic/hormonal therapy because of fear of worsening of osteoporosis. Chronic back pain with questionable etiology MRI scan of thoracic spine done on February 20 x 18 showed T7, and L1 severe compression fracture do not appear to be pathological T4-L2 abnormal dural uniform thickening and enhancement CT PET scan done on 04/04/2018 showed a dominant 1.5 cm left supraclavicular lymph node has SUV of 12.5, suspicious activity is noted in subcentimeter right and left supraclavicular lymph nodes. Multiple hypermetabolic the right axillary lymph nodes are evident in the 1-3 levels with a solitary subcentimeter left exited lymph node an SUV of 3.1 there is abnormal activity in soft tissue anterior to right breast implant measuring 4.4 cm with SUV of 9.1. Malignant mediastinal lymphadenopathy is present in the right anterior mediastinal territory. Mild bilateral hilar activity may be reactive and there is a diffuse activity throughout the marrow containing spaces of the axial and appendicular skeleton widespread metastatic disease versus reactive marrow. Status post radiation therapy to sternum and and back, finished 05/06/2018. was On Femara since March 2018. She was offered a modified dose Ibrance 75 mg by mouth daily day 1-21 days every 28 days, but was declined as she could not afford the high copayments . starting 06/16/18 femara was d/jordy and started on weekly Taxol 80 mg/m??? on day 1, 8 and 15 every 28 days along with monthly Zometa 3 mg intravenously. lter on switched to xgeva , Follow-up CT PET scan done on 10/31/2018 showed excellent response so chemotherapy with weekly Taxol were discontinued on 11/11/2018 and she was switched to Arimidex 1 mg by mouth daily along with monthly Xgeva 2. Hypothyroidism on thyroid supplement 3. History of osteoporosis/osteopenia in the past treated with Fosamax for about 12 years in 1980s and then with Forteo for 2 years till 2009. 4. Hyperlipidemia Mrs Vaz began chemotherapy with paclitaxel 2 out of 3 weeks on 06/16/2018. She is not on Femara at this time.And Zometa was discontinued on 09/09/2018 she will start on Xgeva 120 mg every month MRI scan of spine done on 09/03/2018 showed numerous osteoporotic and pathological compression and burst compression fracture identified, burst fracture at L1 with a 6.7 mm retropulsion with a mild compression upon thecal sac and narrowing of left foramen. Similar to the prior study with no progression Severe compression fractures at T5 and T7 with a more moderate compression deformities at T6, T9, T10, T11 and T12. Compression fracture also at L2, L3 and L4. Mild progression of compression fracture of L4 of approximately 20% Extent of enhancement has improved in the right ilium and right sacrum since MRI scan done in May 2018 CT PET scan done on 10/31/2018 showed right periimplant activity seen on previous CT PET scan done on 04/04/2018 is resolved, no suspicious bilateral axillary or supraclavicular lymphadenopathy present. Mediastinal adenopathy is resolved. Extensive sclerotic changes throughout the axial and appendicular skeleton are consistent with resolution and near resolution of osseous metastatic disease. Mild FDG activity in multiple thoracic vertebrae, bilateral scapula and iliac suggest ongoing resolution metastasis. , and monthly Xgeva, tolerating well and on 02/17/2019 Xgeva changed to every 3 months as her follow-up PET scan done on 02/09/2019 showed excellent response to the treatment now with no evidence of metabolically active disease with resolution of previously findings seen on a prior CT PET scan.MRI scan of thoracic/lumbar/sacral done on 03/16/2019, when compared with one from 09/03/2018 showed diffuse osseous metastatic disease throughout the cervical thorax and lumbar spine appears slightly progressed since 09/03/2018 with more replacement of normal marrow signal Thoracic kyphosis at T5-T7. Vertebra plana at T7 is unchanged Numerous multilevel compression fractures throughout the thoracic spine appears stable since 09/03/2018. No acute compression fracture Cord signal is normal Metastatic disease involving S1 vertebral body is new with progressed disease in the sacrum extending to sacrococcygeal junction. Associated edema and enhancement has progressed in this area. Stable multilevel compression fractures worse at L1 This MRI scan was compared with one from 09/03/[address] PET scan done on 02/09/2019 which showed excellent response so we will request radiologist to compare with recent CT PET scan. B12 deficiency, being managed by PMD CT PET scan done on 07/01/2019 showed hypermetabolic right supraclavicular lymph node with SUV of 2.86 Extensive bone metastases including right humeral head metastatic lesion shows SUV of 5.89. Hypermetabolic metastasis within the presumed T6 vertebral body showed SUV of 4.7 Right posterior sectoral metastasis shows make sure SUV of 5.09 next right femoral metastases shows SUV of 12.3 and there are other hypermetabolic metastasis seen in the left femur, bony pelvis, multiple bilateral ribs and spine Plan: Discussed with patient regarding her labs white blood count 5.3 hemoglobin 9 hematocrit 28.8 platelets 203,000 CMP within normal limits and CT scan of neck chest abdomen pelvis findings as well as bone scan findings Clinically, patient is doing reasonably well, tolerating Faslodex/Xgeva well but with expected side effects, her follow-up CT scan of neck chest abdomen pelvis showed various abnormalities as mentioned above, case was discussed with Dr. Porter, radiologist and her concern was that this CT scan of abdomen shows scattered multiple liver lesions likely metastatic disease but hemangiomas cannot be ruled out whereas airspace densities in the lung could be due to pneumonitis again metastatic disease cannot be ruled out and she is suggested getting CT PET scan to confirm these findings and in case PET scan confirms disease progression then will consider changing her treatment plan otherwise we will continue same in the meantime we will proceed with her Faslodex and Xgeva dose today and then she will return to clinic after CT PET scan for further discussion and planning. Mild/moderate anemia, stable Episode of palpitation/tachycardia lasted for 3 hours and then recurred, concern is cardiac arrhythmias, patient has seen Dr. Sellers, chlorinator operator in the past and his office was called and patient got an appointment for Friday afternoon for reevaluation. In the meantime patient was advised in case he has another episode then she need to go to [facility] for evaluation. Her lab work-up shows electrolytes within normal limits. Patient was advised to take good rest as even anemia especially with exertion, can trigger palpitation thus cardiac arrhythmias. We will schedule her for CT PET scan to confirm abnormalities seen on CT scan of chest abdomen pelvis to rule out disease progression. Signed By: Jane Avitia M.D. <<Signature on File>>
== END 2020-05-05 08:06 | disposition home or self-care (01) ==
LOC: ONCMED 08:07
PROVIDERS: PCP Family Medicine; Visit Provider Internal Medicine Hematology & Oncology
DX: Z51.11 Encounter for antineoplastic chemotherapy (principal); C50.211 Malignant neoplasm of upper-inner quadrant of right female breast; Z17.0 Estrogen receptor positive status [ER+]; C79.51 Secondary malignant neoplasm of bone; C79.52 Secondary malignant neoplasm of bone marrow; E03.9 Hypothyroidism, unspecified; M81.0 Age-related osteoporosis without current pathological fracture; E78.5 Hyperlipidemia, unspecified; I10 Essential (primary) hypertension; Z79.811 Long term (current) use of aromatase inhibitors; Z92.3 Personal history of irradiation
CPT/HCPCS: 96372; 96402; 99214; J0897; J9395

== ENCOUNTER 2020-06-01 09:29 | Outpatient (CLI) | payer MEDICARE, SELFPAY ==
[2020-06-01] MEDS: alteplase 1 mg/mL SDV 2 mL 2 MG INTRACATH ×2 (10:05→16:34)
[2020-06-01 11:26] LABS: Basophils % 0.6 %; Eosinophils # 0.1 10^3/uL (0.0-0.8); Eosinophils % 1.8 %; Hemoglobin 9.9 g/dL (11.5-15.3); Lymphocytes # 0.7 10^3/uL (0.8-4.8); Lymphocytes % 14.3 %; Mean Corpuscular HGB Conc 30.9 g/dL (30.0-36.0); Mean Corpuscular Hemoglobin 29.6 pg (28.0-34.0); Mean Corpuscular Volume 95.5 fL (81-99); Mean Platelet Volume 12.1 fL (7.4-10.4); Monocytes # 0.6 10^3/uL (0.2-0.9); Monocytes % 12.7 %; Neutrophils # 3.4 10^3/uL (1.8-7.7); Neutrophils % 70.2 %; Nucleated Red Blood Cells % 0 %; Platelet Count 203 10^3/cmm (130-400); Red Blood Count 3.35 10^6/uL (4.1-5.3); Red Cell Distribution Width 15.3 % (12.1-15.1); White Blood Count 4.9 10^3/uL (4.0-10.0)
[2020-06-01 12:20] LABS: Alanine Aminotransferase 31 U/L (0-33); Albumin Level 3.9 g/dL (3.5-5.2); Alkaline Phosphatase 128 IU/L (35-105); Anion Gap 18.6 (5-19); Aspartate Amino Transferase 62 U/L (0-32); Blood Urea Nitrogen 41 mg/dL (8-23); Carbon Dioxide 23 mmol/L (22-29); Chloride 100 mmol/L (98-107); Globulin 3.2 g/dL (1.3-4.6); Glucose 99 mg/dL (65-115); Osmolality Calculated 282 mOsm/kg (285-295); Potassium 4.6 mmol/L (3.5-5.1); Sodium 137 mmol/L (136-145); Total Bilirubin 0.3 mg/dL (0.15-1.2); Total Protein 7.1 g/dL (6.6-8.7)
== END 2020-06-01 09:30 | disposition home or self-care (01) ==
LOC: ONCMED 09:33
PROVIDERS: PCP Family Medicine; Visit Provider Nurse Practitioner
DX: C50.211 Malignant neoplasm of upper-inner quadrant of right female breast (principal); Z17.0 Estrogen receptor positive status [ER+]; C79.51 Secondary malignant neoplasm of bone; C79.52 Secondary malignant neoplasm of bone marrow; E78.5 Hyperlipidemia, unspecified; E03.9 Hypothyroidism, unspecified; M81.0 Age-related osteoporosis without current pathological fracture; Z79.811 Long term (current) use of aromatase inhibitors; Z92.3 Personal history of irradiation
CPT/HCPCS: 36593; 80053; 85025; 96374; 96376; J2997

== ENCOUNTER 2020-06-05 13:07 | Outpatient (CLI) | payer MEDICARE, SELFPAY ==
[2020-06-05] MEDS: denosumab 120 mg SDV SUBCUT (15:03)
--- NOTE | 2020-06-07 15:29 | ONC FU_ITS ---
Marisela Mendez Patient Note Patient: Darcie Vaz Unit #: [id number]: 1945 Dictated By: Satish HansenDate of Visit: Jun 05, 2020 Onc MED Follow-Up/Prog Note Chief Complaint: Back pain and history of right breast carcinoma History of Present Illness: Mrs. Vaz is a 74-year-old female with a history of right breast cancer initially diagnosed in January 2017. She had mammography and ultrasound which showed a mass in the medial quadrant of right breast. A core biopsy was obtained which showed ER/MN positive HER-2/xavier negative. She underwent bilateral mastectomy and right sentinel lymph node biopsy in January 2017 followed by bilateral tissue medical technical writer placement. Her postoperative period was complicated by left breast cellulitis which was treated with IV antibiotics . She underwent bilateral breast reconstruction and it was completed in January 2018. She did not receive adjuvant systemic therapy or radiation therapy at that time. She did not pursue hormonal treatment due to a history of osteoporosis. Mrs Vaz has history of osteoporosis/osteopenia for which she was treated with Fosamax for 12 years in . Then with Forteo for couple of years till 2009 as per patient. She did develop bilateral femur fracture due to osteoporosis and required internal fixation with titanium jenny in October 2008. She has history of back pain but recently got worse and she presented to her primary care physician for worsening back pain in the lower T and L-spine area. She underwent MRI imaging of the thoracic spine on 02/20/2018. It did show a nonacute appearing T7 and L1 burst fracture with associated mild central canal stenosis. The fracture did not appear to be pathologic. Additional T5, T6 and T11 mild compression fractures were noted. She was evaluated by Dr. Guillen and no surgical intervention was recommended. She did undergo PET/CT on 04/04/2018 which showed right axillary lymphadenopathy and bilateral supraclavicular lymphadenopathy with increased FDG uptake most likely recurrent malignancy. There was also a hypermetabolic malignant adenopathy in the anterior, mediastinal and widespread FDG activity throughout the marrow containing spaces of the axial and appendicular skeleton. These were strongly suspicious for widespread osseous metastatic disease. She had worsening of the low back pain which she described as persistent, stabbing, sharp pain that was worse especially when she walks, sits or stands. She had some radiation of the pain to the bilateral rib cage. She denied any focal weakness tingling or numbness. She's had no increments of the bowel or bladder at that time as well. She was [facility] and Dr. Yap did recommend palliative radiation to the T and L-spine for pain relief. She received a total of 3000 cGy to the T and L-spine over 17 days. Her and of treatment date was 04/30/2018. She then received 2000 cGy to the sternum over 6 days with an end date of 05/06/2018. Mrs Vaz was offered her treatment with Ibrance and femara However she was unable to afford the co-pay on the Ibrance so her treatment plan has been changed to weekly paclitaxel . She received her first treatment on 06/16/2018. Till 11/11/2018, when her f/u CT PET scan done on 10/31/2018 showed excellent response to the treatment with resolution and near resolution of extensive osseous metastatic disease and she was switched to Arimidex 1 mg by mouth daily Along with monthly Xgeva and vitamin D and calcium supplement She did have kyphoplasty of L2 and L3 on 10/09/[address] Estrada-up CT PET scan done on 02/09/2019 showed excellent response to the treatment, now no evidence of metabolic activity disease with resolution of previously findings seen on prior CT PET scan. B12 deficiency, managed by primary care physicianMRI scan of lumbar spine was done on 03/16/2019 and when compared with one from 09/03/2018 showed diffuse osseous metastatic disease with complete replacement of normal fatty bone marrow signal, next Metastatic disease involving the S1 vertebral body is a new with progressed disease in the sacrum extending to the sacrococcygeal junction. Associated with edema and enhancement has progressed in this area. Enhancing metastatic disease involving S2 extending distally to the sacrococcygeal junction is progressed from previous consistent with metastatic disease. Associated enhancement, diffuse edema and enhancement in the sacrum is progressed since prior exam Stable multilevel compression fracture worse at L1 with mild retropulsion of L1 level MRI scan of thoracic spine done on 03/16/2019 showed diffuse osseous metastatic disease throughout the cervical thoracic and lumbar spine appears slightly progressed since 09/03/2018 with a more replacement of normal bone marrow signal Thoracic kyphoplasty at T5-T7. Vertebral plana at T7 is unchanged Numerous multilevel compression fractures throughout the thoracic spine appears stable since 09/03/2018 Cord signal is normal On 03/26/2019 patient underwent T8 and T10 kyphoplasty. Patient had CT PET scan done in January 2019, which showed excellent response, we will request radiologist to review and compared with that study. Her genetic profiling was done on 03/22/2019 showed positive results, pathogenic variant identified in BRCA2 CT PET scan done on 07/01/2019 showed hypermetabolic right supraclavicular lymph node with SUV of 2.86 and development of diffuse hypermetabolic metastatic disease throughout the axial and appendicular skeleton. Arimidex was discontinued and was switched to fulvestrant on 07/06/2019,but it was started on 07/27/2019 , while continue with xgeva Follow-up bone scan done on April 06, 2020 shows suspected abnormal activity in the right and left proximal femurs suggesting but not conclusive of metastatic disease. The remaining thoracic lumbar spine shows ill-defined densities suggestive of remote fractures. No new lesions seen x-ray pelvis shows there is evidence of previous fracture and healing and rash pains in the mid shafts of the femur. Questionable early metastatic disease in the hip joints and pubic ischium. CT scan of neck showed palpable abnormality in the right lower neck corresponds to prominent vessel and left palpable corresponds to fat. Where a CT scan of chest abdomen pelvis done on same day on April 04, 2020 showed left supraclavicular mass measuring 2.4 x 1.5 cm.. Additional indeterminate but suspicious hilar and mediastinal lymph nodes. Numerous hepatic metastatic lesion hemangioma versus metastatic disease as the CT scan was done with contrast whereas earlier CT scan were without contrast. Case was discussed with Dr. Porter radiologist and she suggested CT PET scan to confirm the findings. Diffuse osseous metastatic lesion numerous vertebral compression fracture and numerous prior vertebroplasty's. No definite metastatic lesion in the lungs. There are scattered areas of airspace disease which may be pneumonitis, cannot completely exclude metastatic disease but less likely. New small pericardial effusion. Came for follow-up in March 2020, denies any specific complaints but episode of palpitation which lasted for 3 hours, patient said she did not have any shortness of breath still having chest pain no dizziness or lightheadedness. She had another episode which lasted for less than 1 hour again no symptoms. Patient has seen Dr. Sellers in the past but then lost follow-up. She has since then reestablished with him. Her tells me that she has stated to undergo a chemical stress test and ultrasound per Dr. Sellers. She is here today for follow-up and consideration of Fosamax and Xgeva. However she has multiple complaints. She states she has many new lumps around her clavicle and throat area. She has had some nausea but no vomiting. She states she has had headaches as well but no vision changes. She is short of breath with minimal exertion and minimal activity. She states that she has persistent hoarseness that will not go away. She has had voice changes but states the hoarseness has been persistently getting worse and is really bad today . She has had more fatigue. She states she really has not had more bone pain but overall this feels more tired and weak. She was unable to have her PET/CT prior to this visit as we were having trouble getting it authorized through her insurance. She does inform me that she is now scheduled for a PET CT in [facility] on June 14, 2020. Her ECOG is a marginal 1. Past Medical History: Hyperlipidemia Hypothyroidism Osteoporosis Arrhythmia in 2018 Past Surgical History: Kyphoplasty L2-L3 in 2018 Influenza vacccine in 2018 Pneumovax 23 vacccine in 2018 Right venous access device-Dr Polo [facility] in 2018 Mastectomy in 2017 Prevnar 13 vaccine in 2012 Cataract excision in 2011 MOHS surgery in 2010 Back surgery in 2007 Surgical repair of bimalleolar fracture in 1985 Hysterectomy in 1979 Allergies: penicillin and sulfonamides. Medications: Aspir-81 1 Tablet (of 325 mg) Tablet, enteric coated Oral daily Calcium + D3 1 Tablet (of 600-200 mg - Units) Oral daily Chlorothiazide 1 Tablet (of 250 mg) Oral daily Docusate Sodium 1 Tablet (of 100 mg) Oral at bedtime PRN Fulvestrant 1 Each (of 250 mg/5mL) Intramuscular q 30 days Hydrocodone-Acetaminophen 1 Tablet (of 10-325 mg) Oral 6x/d PRN Levothyroxine Sodium 1 (112 mcg) Tablet Oral daily Lisinopril 1 Tablet (of 10 mg) Oral daily LORazepam 1 - 2 Tablet (of 0.5 mg) Oral daily PRN Metoprolol Succinate ER 1 Tablet (of 25 mg) Tablet SR 24 HR Oral b.i.d. Xgeva 1 Each (of 120 ) Subcutaneous q 30 days Family History: Ms. Vaz's mother at age 63. Ms. Vaz's father at age 64: prostate cancer. Ms. Vaz has 2 brothers: 2 . Ms. Vaz's first brother's pancreatic cancer. She has 1 sister who is alive. Social History: Ms. Vaz is and she is retired. Ms. Vaz has never smoked. She has no history of drinking. Review Of Symptoms: Constitutional Denies fevers, chills, night sweats. Having fatigue or weight loss. Allergic/Immunologic No reactions. Eyes Denies significant visual changes. No diplopia. No amaurosis. ENMT Denies changes in hearing, sore throat, mouth sores, difficulty or changes in swallowing ability, and/or sinus drainage. Endocrine No diabetes, thyroid disease or hormone replacement. Denies hot flashes or night sweats. Hematologic/Lymphatic Denies easy bruising or bleeding. The patient denies any tender or palpable lymph nodes. Respiratory Denies dyspnea on exertion, chest pain, cough or hemoptysis. Denies orthopnea. Cardiovascular Denies anginal chest pain, palpitations or orthopnea. Gastrointestinal Denies nausea, vomiting, diarrhea, GI bleeding, or constipation. Denies change in bowel habits and/or stool color, no heartburn or early satiety. Genitourinary (F) No hematuria, hesitancy, incontinence, vaginal bleeding, discharge or other problems with urination. Musculoskeletal Denies joint pain, swelling or redness. No decreased range of motion. Integumentary Denies chronic rashes, inflammation, ulcerations or skin changes. Neurologic Denies headache, blurred vision, and no areas of focal weakness or numbness. Normal gait. No sensory problems. Psychiatric Denies insomnia, depression, armando or mood swings. Vital Signs: Performed on Jun 05, 2020 13:25 Height - 63.00 in Weight - 109.6 lbs (LOW) BSA - 1.50 sq.m BMI - 19.41 Temperature - 98.0 F (LOW) Pulse - 96 /min Respiration - 17 /min BP - 112/64 mm(hg) O2 Sat - 95 % (LOW) Pain - 5,1 - No physically strenuous activity, but ambulatory and able to carry out light or sedentary work (e.g. office work, light house work). (ECOG) Physical Examination: Constitutional Alert, oriented, no acute distress. Skin pink, warm and dry. Head Normocephalic; atraumatic. Eyes Conjunctivae and sclerae are clear and without icterus. Pupils are reactive and equal. Neck Supple without masses or thyromegaly. No jugular venous distension. Hematologic/Lymphatic No petechiae or purpura. No tender or palpable lymph nodes in the cervical or supraclavicular areas. Respiratory Lungs are clear to auscultation without rhonchi or wheezing. Cardiovascular Regular rate and rhythm of heart without murmurs,clicks, gallops or rubs. Back/Spine Non-tender to palpation. Extremities No visible deformities, no cyanosis, clubbing or edema. Musculoskeletal No tenderness or swelling, normal range of motion without obvious weakness. Integumentary No rashes or lesions. Neurologic No sensory or motor deficits, normal cerebellar function, normal gait. Psychiatric Alert and oriented times three. Coherent speech. Verbalizes understanding of our discussions today. Laboratory:Test performed on April 28, 2020 08:42 Sodium 135 mmol/L Potassium 4.1 mmol/L Chloride 98 mmol/L CO2 25 mmol/L Anion Gap 16.1 BUN 27 mg/dL Creatinine 1.0 mg/dL Cr Clearance (Est) 42.3300 mL/min Glucose 141 mg/dL Calcium 9.3 mg/dL Protein, Total 6.7 g/dL Albumin 3.9 g/dL Globulin 2.8 g/dL Bilirubin, Total 0.3 mg/dL ALT (SGPT) 26 U/L AST (SGOT) 51 U/L Alkaline Phosphatase 91 IU/L WBC 5.3 10 3/uL RBC 3.02 10 6/uL HGB 9.0 g/dL HCT 28.8 % MCV 95.4 fL MCH 29.8 pg MCHC 31.3 g/dL RDW 14.6 % Platelet Count 203 10 3/cmm MPV 11.5 fL Neutrophils 4.0 10 3/uL Lymphocytes 0.6 10 3/uL Monocytes 0.6 10 3/uL Eosinophils 0.1 10 3/uL Basophils 0.0 10 3/uL Neutrophil % 74.6 % Lymphocyte % 10.8 % Monocyte % 11.2 % Eosinophil % 2.6 % Basophils % 0.4 % Impression: 1. Right breast carcinoma status post bilateral mastectomy with sentinel lymph node dissection in January 2017 Status post bilateral mastectomy January 2017 followed by bilateral breast reconstruction ER/MN positive HER-2/xavier negative ,Genetic testing done on 03/22/2019 showed results positive, pathogenic variant identified in BRCA2 She was offered tamoxifen but patient did not take any form of systemic/hormonal therapy because of fear of worsening of osteoporosis. Chronic back pain with questionable etiology MRI scan of thoracic spine done on February 20 2 x 18 showed T7, and L1 severe compression fracture do not appear to be pathological T4-L2 abnormal dural uniform thickening and enhancement CT PET scan done on 04/04/2018 showed a dominant 1.5 cm left supraclavicular lymph node has SUV of 12.5, suspicious activity is noted in subcentimeter right and left supraclavicular lymph nodes. Multiple hypermetabolic the right axillary lymph nodes are evident in the 1-3 levels with a solitary subcentimeter left exited lymph node an SUV of 3.1 there is abnormal activity in soft tissue anterior to right breast implant measuring 4.4 cm with SUV of 9.1. Malignant mediastinal lymphadenopathy is present in the right anterior mediastinal territory. Mild bilateral hilar activity may be reactive and there is a diffuse activity throughout the marrow containing spaces of the axial and appendicular skeleton widespread metastatic disease versus reactive marrow. Status post radiation therapy to sternum and and back, finished 05/06/2018. was On Femara since March 2018. She was offered a modified dose Ibrance 75 mg by mouth daily day 1-21 days every 28 days, but was declined as she could not afford the high copayments . starting 06/16/18 femara was d/jordy and started on weekly Taxol 80 mg/m??? on day 1, 8 and 15 every 28 days along with monthly Zometa 3 mg intravenously. lter on switched to xgeva , Follow-up CT PET scan done on 10/31/2018 showed excellent response so chemotherapy with weekly Taxol were discontinued on 11/11/2018 and she was switched to Arimidex 1 mg by mouth daily along with monthly Xgeva 2. Hypothyroidism on thyroid supplement 3. History of osteoporosis/osteopenia in the past treated with Fosamax for about 12 years in 1980s and then with Forteo for 2 years till 2009. 4. Hyperlipidemia Mrs Vaz began chemotherapy with paclitaxel 2 out of 3 weeks on 06/16/2018. She is not on Femara at this time.And Zometa was discontinued on 09/09/2018 she will start on Xgeva 120 mg every month MRI scan of spine done on 09/03/2018 showed numerous osteoporotic and pathological compression and burst compression fracture identified, burst fracture at L1 with a 6.7 mm retropulsion with a mild compression upon thecal sac and narrowing of left foramen. Similar to the prior study with no progression Severe compression fractures at T5 and T7 with a more moderate compression deformities at T6, T9, T10, T11 and T12. Compression fracture also at L2, L3 and L4. Mild progression of compression fracture of L4 of approximately 20% Extent of enhancement has improved in the right ilium and right sacrum since MRI scan done in May 2018 CT PET scan done on 10/31/2018 showed right periimplant activity seen on previous CT PET scan done on 04/04/2018 is resolved, no suspicious bilateral axillary or supraclavicular lymphadenopathy present. Mediastinal adenopathy is resolved. Extensive sclerotic changes throughout the axial and appendicular skeleton are consistent with resolution and near resolution of osseous metastatic disease. Mild FDG activity in multiple thoracic vertebrae, bilateral scapula and iliac suggest ongoing resolution metastasis. , and monthly Xgeva, tolerating well and on 02/17/2019 Xgeva changed to every 3 months as her follow-up PET scan done on 02/09/2019 showed excellent response to the treatment now with no evidence of metabolically active disease with resolution of previously findings seen on a prior CT PET scan.MRI scan of thoracic/lumbar/sacral done on 03/16/2019, when compared with one from 09/03/2018 showed diffuse osseous metastatic disease throughout the cervical thorax and lumbar spine appears slightly progressed since 09/03/2018 with more replacement of normal marrow signal Thoracic kyphosis at T5-T7. Vertebra plana at T7 is unchanged Numerous multilevel compression fractures throughout the thoracic spine appears stable since 09/03/2018. No acute compression fracture Cord signal is normal Metastatic disease involving S1 vertebral body is new with progressed disease in the sacrum extending to sacrococcygeal junction. Associated edema and enhancement has progressed in this area. Stable multilevel compression fractures worse at L1 This MRI scan was compared with one from 09/03/[address] PET scan done on 02/09/2019 which showed excellent response so we will request radiologist to compare with recent CT PET scan. B12 deficiency, being managed by PMD CT PET scan done on 07/01/2019 showed hypermetabolic right supraclavicular lymph node with SUV of 2.86 Extensive bone metastases including right humeral head metastatic lesion shows SUV of 5.89. Hypermetabolic metastasis within the presumed T6 vertebral body showed SUV of 4.7 Right posterior sectoral metastasis shows make sure SUV of 5.09 next right femoral metastases shows SUV of 12.3 and there are other hypermetabolic metastasis seen in the left femur, bony pelvis, multiple bilateral ribs and spine. Clinically, patient is doing reasonably well, tolerating Faslodex/Xgeva well but with expected side effects, her follow-up CT scan of neck chest abdomen pelvis showed various abnormalities as mentioned above. Her case was discussed with Dr. Porter, radiologist and her concern was that this CT scan of abdomen shows scattered multiple liver lesions likely metastatic disease but hemangiomas cannot be ruled out. Airspace densities in the lung could be due to pneumonitis, but again metastatic disease cannot be ruled out. Dr Porter suggested getting CT PET scan to confirm these findings and in case PET scan confirms disease progression then will consider changing her treatment plan. However, we have had difficulty getting the PET/Ct approved via insurance but she now has a PET/CT scheduled for 06/14/2020. Plan: 1. Proceed with Xgeva. I have delayed the Faslodex until we can obtain her PET/CT imaging. If she is truly having disease progression, the Faslodex isn't helping and we will need to change treatments. 2. Use anitemtics on hand prn nausea/vomiting. 3. Labs from 06/01/2020 reported a WBC 4.9, Hgb 9.9, HCt 32.0, platlets [id number], Creatinine is 1.5, but she admits to not drinking alot over thet last few days. 4. Proceed with ultrasound and TST as per Dr Sellers for cardiac evaluation. 5. Followup with Dr Avitia after the PET/Ct to reveiw results and determine further plan of care. 6. Mrs Vaz was instructed to call us in the interim if questions or problems arise. Signed By: Satish Hansen-, AOCNP Jane Avitia MD <<Signature on File>>
== END 2020-06-05 13:08 | disposition home or self-care (01) ==
LOC: ONCMED 13:10
PROVIDERS: PCP Family Medicine; Visit Provider Nurse Practitioner
DX: Z51.11 Encounter for antineoplastic chemotherapy (principal); C50.211 Malignant neoplasm of upper-inner quadrant of right female breast; Z17.0 Estrogen receptor positive status [ER+]; C79.52 Secondary malignant neoplasm of bone marrow; C79.51 Secondary malignant neoplasm of bone; E78.5 Hyperlipidemia, unspecified; E03.9 Hypothyroidism, unspecified; M81.0 Age-related osteoporosis without current pathological fracture; Z79.811 Long term (current) use of aromatase inhibitors; Z92.3 Personal history of irradiation
CPT/HCPCS: 96372; 99214; J0897

== ENCOUNTER 2020-06-07 10:42 | Outpatient (CLI) | payer MEDICARE, SELFPAY ==
--- NOTE | 2020-06-07 10:49 | MR_ITS ---
WS: [id number] MRI HEAD WITH CONTRAST TECHNIQUE: Sagittal T1, T2 axial, T2 axial FLAIR, axial susceptibility weighted imaging, axial diffus ion weighted images, and coronal T2 images were obtained. Pre and post-T1 axial and post T1 coronal i mages. ADC and FSPGR images. CLINICAL INFORMATION: METASTATIC BREAST CANCER, NAUSEA, VOICE AND VISION CHANGES COMPARISON: None. FINDINGS: No evidence of restricted diffusion to suggest acute ischemia. Ventricular system and basal cisterns are patent. Mild small vessel changes. Moderate parenchymal volume loss. Normal posterior fossa. Norm al vascular flow voids at the skull base. No extra-axial fluid collections. No evidence of mass or ma ss effect. Mastoid air cells are well aerated. Partial opacification right frontal ethmoidal recess. Normal optic chiasm and pituitary infundibulum. Temporal lobes and hippocampal formations are normal in appearance. No hemosiderin on the susceptibly weighted images. No abnormal gadolinium enhancement. No evidence of enhancing intracranial metastatic disease. Normal visualized dural venous sinuses. Replacement of the normal fatty bone marrow signal in the upper cerv ical spine likely due to red marrow conversion prior and/or treatment-related changes. MR/MR head wo/w con [id number] IMPRESSION: 1. No evidence of enhancing intracranial metastatic disease. 2. Mild small vessel changes moderate parenchymal volume loss. 3. Normal optic chiasm and pituitary infundibulum. 4. Replacement of the normal fatty bone marrow signal in the upper cervical sp ine likely due to treatment-related changes with red marrow marrow conversion
== END 2020-06-07 10:43 | disposition home or self-care (01) ==
LOC: RADWPI 10:46
PROVIDERS: Family Provider Family Medicine; PCP Family Medicine; Visit Provider Nurse Practitioner
DX: C50.211 Malignant neoplasm of upper-inner quadrant of right female breast (principal); R11.0 Nausea; R49.9 Unspecified voice and resonance disorder; H53.9 Unspecified visual disturbance
CPT/HCPCS: 70553; A9579

== ENCOUNTER 2020-06-08 07:01 | Outpatient (CLI) | payer MEDICARE, SELFPAY ==
--- NOTE | 2020-06-08 07:04 | ECG_ITS ---
[facility] Test Date: 2020-06-08 Pat Name: Darcie Vaz Department: Room: Gender: Female Train Attendant: : 1945 Requested By: Donna Sellers Order Number: [id number] Donnie MD: Donna Sellers M.D. Interpretive Statements NAME OF STUDY: LEXISCAN SESTAMIBI STRESS TEST INDICATION: RHEUMATIC AORTIC STENOSIS/PALPITATIONS/FATIGUE/PARSONS, PROCEDURE: At the baseline, the EKG revealed normal sinus rhythm with some nonspecific T wave changes. The baseline blood pressure was 116/68 mm Hg with a heart rate of 85 beats/min. Lexiscan was infused over a period of 20 seconds. A total of 0.4 milligrams of Lexiscan was infused. The stress phase was continued for a total of 5 minutes. Heart rate at the end of the stress phase was 108 with a blood pressure 125/79. The EKG at the peak infusion revealed no significant changes. Sestamibi was injected 20 seconds after the Lexiscan infusion. Blood pressure at the end of the recovery phase was 124/76 with a heart rate of 102 per minute. CONCLUSION: 1. No significant EKG changes with the LexiScan infusion 2. No LexiScan induced chest pain or cardiac arrhythmia 3. Normal blood pressure and heart rate response 4. Sestamibi/sestamibi perfusion scan pending; see separate report. Electronically Signed On 06-16-2020 11:14:51 CDT by Donna Sellers M.D. [email or web address] [id number]
--- NOTE | 2020-06-08 07:05 | NMCV_ITS ---
NM leo perf SPECT r/s* [id number] Darcie Vaz Age: 74 Gender: F : 1945 Exam Date: 06/08/2020 08:22 Ordering Phys: Donna Sellers MD ([email or web address]) Technologist: OLIVIA Liao Exam Location: [facility] Indications: Aortic stenosis STRESS TEST Please see separate stress test report in [facility] for full findings IMAGE PROTOCOL Rest/Stress 1 Lexiscan Day Radiopharmaceutical Dose (mCi) Administration Site Administered by Rest: Tc-99m 10.5 IV Janki Isabel, CORRECTIONAL THERAPY TEACHER Sestamibi Stress:Tc-99m 32.7 IV Janki Isabel, CORRECTIONAL THERAPY TEACHER Sestamibi Rest: 08-Jun-2020 60 Discovery 630 Stress: 08-Jun-2020 45 Discovery 630 0.4mg Lexiscan. Supine position only as patient was unable to lay prone. SPECT RESULTS Technical Quality: Good Raw Data Analysis: Unable to hold arms up for scan. Image Corrections: No attenuation or motion correction applied Summed Stress Score: 0 Summed Rest Score: 3 Summed Difference Score: 0 PERFUSION FINDINGS Small areas of decreased tracer uptake in the apical anterior and apical regions. No significant reversibility was noted. FUNCTIONAL RESULTS (calculated via Gated SPECT) Stress Image LV EF (%): 92 Stress EDV (mL):38 TID: 0.83 Stress ESV (mL):3 FUNCTIONAL FINDINGS: Segmental wall motion analysis revealing no gross wall motion normalities. IMPRESSIONS 1. Myocardial perfusion imaging revealing small areas of persistent decreased tracer uptake in the apical regions, suggestive of myocardial scarring versus attenuation artifacts. 2. Normal LV ejection fraction of 92%. This could be an overestimation because of the low end-systolic volume 3. Segmental wall motion analysis revealing no gross wall motion normalities. 4. Normal LV volume. No significant coronary ischemia, based on the above findings Dr Donna Sellers MD FACC (Electronically Signed) Final Date: 08 June 2020 20:52 S
[2020-06-08 07:24] VITALS: BMI 21.0
[2020-06-08] MEDS: regadenoson 0.4 Mg/5 ml Syringe IVP (09:08)
[2020-06-08] MEDS: ondansetron 2 mg/ML SDV 2 mL 4 MG IVP (09:11)
[2020-06-08 09:23] VITALS: BP 124/76; PULSE 96
== END 2020-06-08 07:02 | disposition home or self-care (01) ==
PROVIDERS: PCP Family Medicine; Visit Provider Internal Medicine Cardiovascular Disease
DX: I35.0 Nonrheumatic aortic (valve) stenosis (principal)
CPT/HCPCS: 78452; 93017; 96374; 96375; A9500; J2405; J2785

== ENCOUNTER 2020-06-21 06:42 | Outpatient (RCR) | payer MEDICARE, SELFPAY ==
--- NOTE | 2020-06-16 12:02 | ONC FU_ITS ---
Dr. Avitia follow up note Patient: Darcie Vaz Unit #: [id number]: 1945 Dicatated By: Jane Avitia M.D.Date of Visit:Jun 16, 2020 Onc Med Follow-up/Prog Note History of Present Illness: Mrs. Vaz is a 75-year-old female with a history of right breast cancer initially diagnosed in January 2017. She had mammography and ultrasound which showed a mass in the medial quadrant of right breast. A core biopsy was obtained which showed ER/DC positive HER-2/xavier negative. 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 Her postoperative period was complicated by left breast cellulitis which was treated with IV antibiotics . She underwent bilateral breast reconstruction and it was completed in January 2018. She did not receive adjuvant systemic therapy or radiation therapy at that time. She did not pursue hormonal treatment due to a history of osteoporosis. Mrs Vaz has history of osteoporosis/osteopenia for which she was treated with Fosamax for 12 years in . Then with Forteo for couple of years till 2009 as per patient. She did develop bilateral femur fracture due to osteoporosis and required internal fixation with titanium jenny in October 2008. She has history of back pain but recently got worse and she presented to her primary care physician for worsening back pain in the lower T and L-spine area. She underwent MRI imaging of the thoracic spine on 02/20/2018. It did show a nonacute appearing T7 and L1 burst fracture with associated mild central canal stenosis. The fracture did not appear to be pathologic. Additional T5, T6 and T11 mild compression fractures were noted. She was evaluated by Dr. Guillen and no surgical intervention was recommended. She did undergo PET/CT on 04/04/2018 which showed right axillary lymphadenopathy and bilateral supraclavicular lymphadenopathy with increased FDG uptake most likely recurrent malignancy. There was also a hypermetabolic malignant adenopathy in the anterior, mediastinal and widespread FDG activity throughout the marrow containing spaces of the axial and appendicular skeleton. These were strongly suspicious for widespread osseous metastatic disease. She had worsening of the low back pain which she described as persistent, stabbing, sharp pain that was worse especially when she walks, sits or stands. She had some radiation of the pain to the bilateral rib cage. She denied any focal weakness tingling or numbness. She's had no increments of the bowel or bladder at that time as well. She was referred [facility] and Dr. Yap did recommend palliative radiation to the T and L-spine for pain relief. She received a total of 3000 cGy to the T and L-spine over 17 days. Her and of treatment date was 04/30/2018. She then received 2000 cGy to the sternum over 6 days with an end date of 05/06/2018. Mrs Vaz was offered her treatment with Ibrance and femara However she was unable to afford the co-pay on the Ibrance so her treatment plan has been changed to weekly paclitaxel . She received her first treatment on 06/16/2018. Till 11/11/2018, when her f/u CT PET scan done on 10/31/2018 showed excellent response to the treatment with resolution and near resolution of extensive osseous metastatic disease and she was switched to Arimidex 1 mg by mouth daily Along with monthly Xgeva and vitamin D and calcium supplement She did have kyphoplasty of L2 and L3 on 10/09/[address] Estrada-up CT PET scan done on 02/09/2019 showed excellent response to the treatment, now no evidence of metabolic activity disease with resolution of previously findings seen on prior CT PET scan. B12 deficiency, managed by primary care physicianMRI scan of lumbar spine was done on 03/16/2019 and when compared with one from 09/03/2018 showed diffuse osseous metastatic disease with complete replacement of normal fatty bone marrow signal, next Metastatic disease involving the S1 vertebral body is a new with progressed disease in the sacrum extending to the sacrococcygeal junction. Associated with edema and enhancement has progressed in this area. Enhancing metastatic disease involving S2 extending distally to the sacrococcygeal junction is progressed from previous consistent with metastatic disease. Associated enhancement, diffuse edema and enhancement in the sacrum is progressed since prior exam Stable multilevel compression fracture worse at L1 with mild retropulsion of L1 level MRI scan of thoracic spine done on 03/16/2019 showed diffuse osseous metastatic disease throughout the cervical thoracic and lumbar spine appears slightly progressed since 09/03/2018 with a more replacement of normal bone marrow signal Thoracic kyphoplasty at T5-T7. Vertebral plana at T7 is unchanged Numerous multilevel compression fractures throughout the thoracic spine appears stable since 09/03/2018 Cord signal is normal On 03/26/2019 patient underwent T8 and T10 kyphoplasty. Patient had CT PET scan done in January 2019, which showed excellent response, we will request radiologist to review and compared with that study. Her genetic profiling was done on 03/22/2019 showed positive results, pathogenic variant identified in BRCA2 CT PET scan done on 07/01/2019 showed hypermetabolic right supraclavicular lymph node with SUV of 2.86 and development of diffuse hypermetabolic metastatic disease throughout the axial and appendicular skeleton. Arimidex was discontinued and was switched to fulvestrant on 07/06/2019,but it was started on 07/27/2019 , while continue with xgeva Follow-up bone scan done on April 06, 2020 shows suspected abnormal activity in the right and left proximal femurs suggesting but not conclusive of metastatic disease. The remaining thoracic lumbar spine shows ill-defined densities suggestive of remote fractures. No new lesions seen x-ray pelvis shows there is evidence of previous fracture and healing and rash pains in the mid shafts of the femur. Questionable early metastatic disease in the hip joints and pubic ischium. CT scan of neck showed palpable abnormality in the right lower neck corresponds to prominent vessel and left palpable corresponds to fat. Where a CT scan of chest abdomen pelvis done on same day on April 04, 2020 showed left supraclavicular mass measuring 2.4 x 1.5 cm.. Additional indeterminate but suspicious hilar and mediastinal lymph nodes. Numerous hepatic metastatic lesion hemangioma versus metastatic disease as the CT scan was done with contrast whereas earlier CT scan were without contrast. Case was discussed with Dr. Porter radiologist and she suggested CT PET scan to confirm the findings. Diffuse osseous metastatic lesion numerous vertebral compression fracture and numerous prior vertebroplasty's. No definite metastatic lesion in the lungs. There are scattered areas of airspace disease which may be pneumonitis, cannot completely exclude metastatic disease but less likely. New small pericardial effusion. follow-up in March 2020, with episode of palpitation which lasted for 3 hours, patient said she did not have any shortness of breath still having chest pain no dizziness or lightheadedness. She had another episode which lasted for less than 1 hour again no symptoms. Patient has seen Dr. Sellers in the past but then lost follow-up. She has since then reestablished with him. Her tells me that she has stated to undergo a chemical stress test and ultrasound per Dr. Sellers. She was unable to have her PET/CT prior to this visit as we were having trouble getting it authorized through her insurance. Eventually underwent CT PET scan on June 14, 2020 which showed bulky mediastinal lymphadenopathy all new when compared with previous and with a marked increase metabolic activity. Subcarinal lymph node involvement as an index lesion measured 3.5 x 2.4 cm with a maximum SUV of 17.56 trace pleural effusion with a focal increased metabolic activity. Small pulmonary densities with increased metabolic activity bilaterally. New left-sided level 1 and 2 axillary lymph nodes involvement. Abdomen shows interval development of bulky metastatic disease involvement of liver with too numerous to count nodules. Bulky retroperitoneal lymphadenopathy extensive new osseous involvement of femur, entire pelvic girdle upper thoracic and cervical spine and multiple ribs and humerus. MRI head done on June 07, 2020 showed no evidence of metastatic disease to the brain Came for follow-up complaining of generalized weakness and fatigue progressive weight loss, progressive changes in voice and now with mild dysphagia no headaches blurred vision or double vision. Chronic back pain. No hemoptysis or hematemesis. Medications: Aspir-81 1 Tablet (of 325 mg) Tablet, enteric coated Oral daily, Calcium + D3 1 Tablet (of 600-200 mg - Units) Oral daily PRN, Chlorothiazide 1 Tablet (of 250 mg) Oral daily, Docusate Sodium 1 Tablet (of 100 mg) Oral at bedtime PRN, Fulvestrant 1 Each (of 250 mg/5mL) Intramuscular q 30 days, Hydrocodone-Acetaminophen 1 Tablet (of 10-325 mg) Oral 6x/d PRN, Levothyroxine Sodium 1 (112 mcg) Tablet Oral daily, Lisinopril 1 Tablet (of 10 mg) Oral daily, LORazepam 1 - 2 Tablet (of 0.5 mg) Oral daily PRN, Metoprolol Succinate ER 1 Tablet (of 25 mg) Tablet SR 24 HR Oral b.i.d., Xgeva 1 Each (of 120 ) Subcutaneous q 30 days Allergies: penicillin and sulfonamides. Review of Systems: Constitutional - Appetite is poor and weight is slowly decreasing. No fever, chills, hot flashes, or night sweats. Energy level is poor, ENMT - No sinus congestion/drainage. No mouth sores. No sore throat, positive for difficulty swallowing, Hematologic/Lymphatic - No abnormal bruising or bleeding, Respiratory - Frequent shortness of breath with exertion. No cough. No pleuritic pain or hemoptysis, Cardiovascular - No angina pain. No palpitations, Gastrointestinal - No nausea or vomiting. No heartburn or acid reflux. No diarrhea or constipation. No blood in the stool or black stools, Genitourinary (F) - No dysuria or hematuria. No urinary frequency. No urgency or incontinence, Musculoskeletal - Pt reports that she continues to have issues with arthritis, Neurologic - No headache or dizziness. No numbness/paresthesias or other focal neurologic symptoms, Psychiatric - No anxiety or depression. No insomnia. Vital Signs: Performed on Jun 16, 2020 08:11 Height - 63.00 in Weight - 107.0 lbs (LOW) BSA - 1.48 sq.m BMI - 18.95 Temperature - 97.3 F (LOW) Pulse - 92 /min Respiration - 20 /min BP - 92/54 mm(hg) O2 Sat - 97 % Pain - 2 Performance Status: 2 - Ambulatory/capable of all self-care, unable to perform any work activities. Up and about more than 50% of waking hours. (ECOG) Physical Examination: Respiratory - Lungs are clear, Cardiovascular - Regular rate and rhythm of heart, Gastrointestinal - Soft, bowel sounds present, Extremities - Trace edema bilaterally. Lab/Imaging: Test performed on April 28, 2020 08:42 Sodium 135 mmol/L Potassium 4.1 mmol/L Chloride 98 mmol/L CO2 25 mmol/L Anion Gap 16.1 BUN 27 mg/dL Creatinine 1.0 mg/dL Cr Clearance (Est) 42.3300 mL/min Glucose 141 mg/dL Calcium 9.3 mg/dL Protein, Total 6.7 g/dL Albumin 3.9 g/dL Globulin 2.8 g/dL Bilirubin, Total 0.3 mg/dL ALT (SGPT) 26 U/L AST (SGOT) 51 U/L Alkaline Phosphatase 91 IU/L WBC 5.3 10 3/uL RBC 3.02 10 6/uL HGB 9.0 g/dL HCT 28.8 % MCV 95.4 fL MCH 29.8 pg MCHC 31.3 g/dL RDW 14.6 % Platelet Count 203 10 3/cmm MPV 11.5 fL Neutrophils 4.0 10 3/uL Lymphocytes 0.6 10 3/uL Monocytes 0.6 10 3/uL Eosinophils 0.1 10 3/uL Basophils 0.0 10 3/uL Neutrophil % 74.6 % Lymphocyte % 10.8 % Monocyte % 11.2 % Eosinophil % 2.6 % Basophils % 0.4 % Impression: 1. Right breast carcinoma status post bilateral mastectomy with sentinel lymph node dissection in January 2017 Status post bilateral mastectomy January 2017 followed by bilateral breast reconstruction ER/DC positive HER-2/xavier negative ,Genetic testing done on 03/22/2019 showed results positive, pathogenic variant identified in BRCA2 She was offered tamoxifen but patient did not take any form of systemic/hormonal therapy because of fear of worsening of osteoporosis. Chronic back pain with questionable etiology MRI scan of thoracic spine done on February 20 2 x 18 showed T7, and L1 severe compression fracture do not appear to be pathological T4-L2 abnormal dural uniform thickening and enhancement CT PET scan done on 04/04/2018 showed a dominant 1.5 cm left supraclavicular lymph node has SUV of 12.5, suspicious activity is noted in subcentimeter right and left supraclavicular lymph nodes. Multiple hypermetabolic the right axillary lymph nodes are evident in the 1-3 levels with a solitary subcentimeter left exited lymph node an SUV of 3.1 there is abnormal activity in soft tissue anterior to right breast implant measuring 4.4 cm with SUV of 9.1. Malignant mediastinal lymphadenopathy is present in the right anterior mediastinal territory. Mild bilateral hilar activity may be reactive and there is a diffuse activity throughout the marrow containing spaces of the axial and appendicular skeleton widespread metastatic disease versus reactive marrow. Status post radiation therapy to sternum and and back, finished 05/06/2018. was On Femara since March 2018. She was offered a modified dose Ibrance 75 mg by mouth daily day 1-21 days every 28 days, but was declined as she could not afford the high copayments . starting 06/16/18 femkelsie was d/jordy and started on weekly Taxol 80 mg/m??? on day 1, 8 and 15 every 28 days along with monthly Zometa 3 mg intravenously. lter on switched to xgeva , Follow-up CT PET scan done on 10/31/2018 showed excellent response so chemotherapy with weekly Taxol were discontinued on 11/11/2018 and she was switched to Arimidex 1 mg by mouth daily along with monthly Xgeva 2. Hypothyroidism on thyroid supplement 3. History of osteoporosis/osteopenia in the past treated with Fosamax for about 12 years in 1980s and then with Forteo for 2 years till 2009. 4. Hyperlipidemia Mrs Vaz began chemotherapy with paclitaxel 2 out of 3 weeks on 06/16/2018. She is not on Femara at this time.And Zometa was discontinued on 09/09/2018 she will start on Xgeva 120 mg every month MRI scan of spine done on 09/03/2018 showed numerous osteoporotic and pathological compression and burst compression fracture identified, burst fracture at L1 with a 6.7 mm retropulsion with a mild compression upon thecal sac and narrowing of left foramen. Similar to the prior study with no progression Severe compression fractures at T5 and T7 with a more moderate compression deformities at T6, T9, T10, T11 and T12. Compression fracture also at L2, L3 and L4. Mild progression of compression fracture of L4 of approximately 20% Extent of enhancement has improved in the right ilium and right sacrum since MRI scan done in May 2018 CT PET scan done on 10/31/2018 showed right periimplant activity seen on previous CT PET scan done on 04/04/2018 is resolved, no suspicious bilateral axillary or supraclavicular lymphadenopathy present. Mediastinal adenopathy is resolved. Extensive sclerotic changes throughout the axial and appendicular skeleton are consistent with resolution and near resolution of osseous metastatic disease. Mild FDG activity in multiple thoracic vertebrae, bilateral scapula and iliac suggest ongoing resolution metastasis. , and monthly Xgeva, tolerating well and on 02/17/2019 Xgeva changed to every 3 months as her follow-up PET scan done on 02/09/2019 showed excellent response to the treatment now with no evidence of metabolically active disease with resolution of previously findings seen on a prior CT PET scan.MRI scan of thoracic/lumbar/sacral done on 03/16/2019, when compared with one from 09/03/2018 showed diffuse osseous metastatic disease throughout the cervical thorax and lumbar spine appears slightly progressed since 09/03/2018 with more replacement of normal marrow signal Thoracic kyphosis at T5-T7. Vertebra plana at T7 is unchanged Numerous multilevel compression fractures throughout the thoracic spine appears stable since 09/03/2018. No acute compression fracture Cord signal is normal Metastatic disease involving S1 vertebral body is new with progressed disease in the sacrum extending to sacrococcygeal junction. Associated edema and enhancement has progressed in this area. Stable multilevel compression fractures worse at L1 This MRI scan was compared with one from 09/03/[address] PET scan done on 02/09/2019 which showed excellent response so we will request radiologist to compare with recent CT PET scan. B12 deficiency, being managed by PMD CT PET scan done on 07/01/2019 showed hypermetabolic right supraclavicular lymph node with SUV of 2.86 Extensive bone metastases including right humeral head metastatic lesion shows SUV of 5.89. Hypermetabolic metastasis within the presumed T6 vertebral body showed SUV of 4.7 Right posterior sectoral metastasis shows make sure SUV of 5.09 next right femoral metastases shows SUV of 12.3 and there are other hypermetabolic metastasis seen in the left femur, bony pelvis, multiple bilateral ribs and spine. Clinically, patient is doing reasonably well, tolerating Faslodex/Xgeva well but with expected side effects, her follow-up CT scan of neck chest abdomen pelvis showed various abnormalities as mentioned above. Her case was discussed with Dr. Porter, radiologist and her concern was that this CT scan of abdomen shows scattered multiple liver lesions likely metastatic disease but hemangiomas cannot be ruled out. Airspace densities in the lung could be due to pneumonitis, but again metastatic disease cannot be ruled out. Dr Porter suggested getting CT PET scan to confirm these findings and in case PET scan confirms disease progression then will consider changing her treatment plan. However, we have had difficulty getting the PET/Ct approved via insurance but she now has a PET/CT scheduled for 06/14/2020. Plan: Discussed with patient regarding her CT PET scan MRI scan of the head findings which showed very aggressive disease pattern involving extensive bulky central lymphadenopathy bilateral lung involvement liver involvement extensive bone mets but MRI scan of the brain was unremarkable At this point various treatment options were discussed including hospice care, considering patient's performance status hospice would be an appropriate choice on the other hand if patient decides to pursue some form of treatment then will consider palliative chemotherapy to reduce the tumor burden but concern is related toxicity and extensive bulky central lymphadenopathy is a somewhat unusual presentation, concern was whether she had a second primary like lymphoma but with extensive liver and bilateral lung involvement, it could be transformation to aggressive breast cancer. As far as dysphagia and change in voice is concerned probably due to extensive mediastinal lymphadenopathy causing recurrent laryngeal nerve involvement as well as external compression on esophagus. If patient decided to proceed with treatment will discuss with radiation therapy for palliative radiation to relieve the pressure on her esophagus as well as possible recurrent laryngeal nerve involvement. And may consider biopsy from left supraclavicular area to rule out lymphoproliferative disorder again if patient and family wants to go all the way,. But as far as performance status concerned patient is not in a good condition, Discussed with her daughter in detail and with the patient of course, they will discuss with other family members including patient's before they make up their mind regarding pursuing treatment or considering hospice care patient return to clinic in 1 week if she decided to proceed with treatment or she will let us know if she would consider hospice care. Signed By: Jane Avitia M.D. <<Signature on File>>
== END 2020-06-30 23:59 | disposition home or self-care (01) ==
LOC: ONCMED 06:42
PROVIDERS: PCP Family Medicine; Visit Provider Internal Medicine Hematology & Oncology
DX: G89.29 Other chronic pain (principal); C50.211 Malignant neoplasm of upper-inner quadrant of right female breast; C79.51 Secondary malignant neoplasm of bone; C79.52 Secondary malignant neoplasm of bone marrow; M25.512 Pain in left shoulder; M47.816 Spondylosis without myelopathy or radiculopathy, lumbar region; M54.6 Pain in thoracic spine; M54.9 Dorsalgia, unspecified; F11.90 Opioid use, unspecified, uncomplicated; Z87.81 Personal history of (healed) traumatic fracture
CPT/HCPCS: 99214